=== PATIENT | female | born 2005 | race Two or more races ===

== ENCOUNTER 2025-02-04 18:34 | Observation (INO) | payer MEDICAID ==
[2025-02-04] MEDS ORDERED: URSO300C2 PO ×2 (18:57→20:21)
[2025-02-04 19:20] LABS: Urine Protein, UAD TRACE (Negative)
--- NOTE | 2025-02-04 19:30 | DVH ---
OB ULTRASOUND, LIMITED CLINICAL INDICATION: cholestasis TECHNIQUE: Multiple grayscale ultrasound and M-mode images were obtained of the pelvis for evaluation of intrauterine . COMPARISON: None FINDINGS: A single living fetus is seen in vertex presentation. Biophysical profile: 02/14 breathin movements: 2 tone: 2 Amniotic fluid volume: 2 Placenta: Posterior. Amniotic fluid: Visibly normal. ALVAREZ 12.5 cm heart rate: 135 beats/min. A complete anatomic survey was not performed on this exam. Incidental note is made of mild bilateral hydronephrosis. IMPRESSION: Biophysical profile: 02/14 Bilateral hydronephrosis is noted.
[2025-02-04 19:41] LABS: Hematocrit 37.1 % (36.0-46.0); Hemoglobin 12.4 g/dL (12.2-16.2); Mean Corpuscular Hemoglobin 28.0 pg (28.0-32.0); Mean Corpuscular Volume 83.8 fL (80.0-100.0); Nucleated Red Blood Cells % 0.1 %
[2025-02-04 19:59] LABS: INR 0.93 (0.9-1.15); Partial Thromboplastin Time 27.9 SEC (24.5-34.5); Prothrombin Time 9.9 sec (9.3-11.8)
[2025-02-04 20:04] LABS: Albumin 3.6 g/dL (3.2-4.8); Anion Gap 7 (5-15); BUN/Creatinine Ratio 22.2 (10.0-20.0); Bilirubin, Total 0.7 mg/dL (0.2-1.0); Blood Urea Nitrogen 10 mg/dL (9-23); Carbon Dioxide 24 mmol/L (20-31); Chloride 106 mmol/L (98-107); Potassium 3.6 mmol/L (3.5-5.1); Sodium 137 mmol/L (136-145); Total Protein 6.5 g/dL (5.7-8.2); Uric Acid 4.0 mg/dL (3.1-7.8)
[2025-02-04 20:08] LABS: Alanine Aminotransferase 116 U/L (7-40); Alkaline Phosphatase 238 U/L (46-116); Calcium 8.3 mg/dL (8.7-10.4); Glucose 74 mg/dL (74-106)
--- NOTE | 2025-02-04 20:26 | DVHDS2 ---
Physician Discharge Progress N Final Diagnosis: cholestasis labs Operations or Procedures: Operations or Procedures 19yo IUP@34.3wks presents to OB triage after being told by Dr. Allen to come in for itchy palms and soles of feet. VSS NST reactive Dr. Allen consulted, agrees with POC. Rx sent for ursodiol 300mg PO BID. Lab slip given to [facility] to check total and fractionated bile acids on 02/05/25 morning. [facility]/PTL precautions reviewed. Laboratory Tests Test 02/04/25 18:45 02/04/25 19:28 Range/Units Urine Color Yellow Yellow Urine Clarity Clear Clear Urine pH 6.0 5.0-9.0 Urine Specific Dobson 1.024 1.001-1.035 Urine Protein Trace H Negative Urine Ketones Negative Negative Urine Blood Negative Negative /uL Urine Nitrite Negative Negative Urine Bilirubin Negative Negative Urine Urobilinogen 2 H Negative mg/dL Urine Leukocyte Esterase 2+ Negative /uL Urine RBC 3 0 - 4 /hpf Urine Microscopic WBC 18 H 0-5 /HPF Urine Squamous Epithelial Cells Few <5 /hpf Urine Bacteria Few H None Seen /hpf Urine Mucus Few None Seen Urine Glucose Normal Normal mg/dL White Blood Count 7.0 4.4-10.8 10^3/uL Red Blood Count 4.43 4.0-5.20 10^6/uL Hemoglobin 12.4 12.2-16.2 g/dL Hematocrit 37.1 36.0-46.0 % Mean Corpuscular Volume 83.8 80.0-100.0 fL Mean Corpuscular Hemoglobin 28.0 28.0-32.0 pg Mean Corpuscular Hemoglobin Concent 33.5 32.0-36.0 g/dL Red Cell Distribution Width 22.3 H 11.8-14.3 % Platelet Count 240 140-450 10^3/uL Mean Platelet Volume 7.4 6.9-10.8 fL Neutrophils (%) (Auto) 68.0 37.0-80.0 % Lymphocytes (%) (Auto) 26.2 10.0-50.0 % Monocytes (%) (Auto) 4.6 0.0-12.0 % Eosinophils (%) (Auto) 0.6 0.0-7.0 % Basophils (%) (Auto) 0.6 0.0-2.0 % Neutrophils # (Auto) 4.7 1.6-8.6 10 ^3/uL Lymphocytes # (Auto) 1.8 0.4-5.4 10 ^3/uL Monocytes # (Auto) 0.3 0-1.3 10 ^3/uL Eosinophils # (Auto) 0 0-0.8 10 ^3/uL Basophils # (Auto) 0 0-0.2 10 ^3/uL Nucleated Red Blood Cells 0.1 % Prothrombin Time 9.9 9.3-11.8 sec Prothrombin Time INR 0.93 0.9-1.15 Activated Partial Thromboplast Time 27.9 24.5-34.5 SEC Sodium Level 137 136-145 mmol/L Potassium Level 3.6 3.5-5.1 mmol/L Chloride Level 106 98-107 mmol/L Carbon Dioxide Level 24 20-31 mmol/L Anion Gap 7 5-15 Blood Urea Nitrogen 10 9-23 mg/dL Creatinine 0.45 L 0.550-1.02 mg/dL Glomerular Filtration Rate Calc 140 >90 mL/min BUN/Creatinine Ratio 22.2 H 10.0-20.0 Serum Glucose 74 74-106 mg/dL Uric Acid 4.0 3.1-7.8 mg/dL Calcium Level 8.3 L 8.7-10.4 mg/dL Total Bilirubin 0.7 0.2-1.0 mg/dL Aspartate Amino Transferase (AST) 56 H 13-40 U/L Alanine Aminotransferase (ALT) 116 H 7-40 U/L Alkaline Phosphatase 238 H 46-116 U/L Total Protein 6.5 5.7-8.2 g/dL Albumin 3.6 3.2-4.8 g/dL Other Interventions Other Interventions [place] [address] Ph: [phone] DIAGNOSTIC IMAGING Diagnostic Imaging Report : [id number] Signed PATIENT: TWIN STEELE ACCT: [id number] UNIT: [id number] : 2005 LOC: LD ROOM / BED: TRIAGE1 / A AGE / SEX: 19 / F ADM STATUS: ADM IN SERVICE 1845 ORDERING PHYSICIAN: DARCI NUNN CNM PROCEDURE(s): BPP - BIOPHYSICAL PROFILE REASON: cholestasis ORDER NUMBER(s): [id number], ACCESSION NUMBER(s): [id number] OB ULTRASOUND, LIMITED CLINICAL INDICATION: cholestasis TECHNIQUE: Multiple grayscale ultrasound and M-mode images were obtained of the pelvis for evaluation of intrauterine . COMPARISON: None FINDINGS: A single living fetus is seen in vertex presentation. Biophysical profile: 02/14 breathin movements: 2 tone: 2 Amniotic fluid volume: 2 Placenta: Posterior. Amniotic fluid: Visibly normal. ALVAREZ 12.5 cm heart rate: 135 beats/min. A complete anatomic survey was not performed on this exam. Incidental note is made of mild bilateral hydronephrosis. IMPRESSION: Biophysical profile: 02/14 Bilateral hydronephrosis is noted. ATED BY: CLARISSA CAMACHO MD DICTATED DATE/TIME: 02/04/251927 SIGNED BY: CLARISSA CAMACHO MD SIGNED DATE/TIME: 02/04/251927 CC: Condition on Discharge: Stable Disposition: Home Discharge Instructions: Diet: Regular Activity: No Restrictions, As Tolerated Medications: see med list Follow Up Care: Specialist: f/u twice weekly Discharge Statement: "Patient was advised to return to the ER or call 911 if any headaches, dizziness, shortness of breath, chest pain, abdominal pain, bleeding, fevers, or worsening of medical condition. Patient was counseled about treatment plan, medications, possible side effects, patientverbalized understanding. All questions were answered to the best of my ability. This discharge took greater then 30 minutes in planning, reviewing documentation, counseling the patient, and discussing with other team members." Visit Coding OBGYN Date of Service: Feb 04, 2025 Billing Provider: DARCI NUNN CNM TAB CARD PRESS OPERATOR Common Visit Codes: 97825-[id number] OBS CARE (HIGH) TAB CARD PRESS OPERATOR Procedure Codes: 51430-88- NON-STRESS TEST DARCI NUNN CNM Feb 04, 2025 20:26
== END 2025-02-04 20:30 | disposition home or self-care (01) ==
LOC: LDRP 18:34
PROVIDERS: ADMIT Obstetrics & Gynecology; ATTEND Obstetrics & Gynecology
DX: O26.643 Intrahepatic cholestasis of pregnancy, third trimester (principal); Z3A.34 34 weeks gestation of pregnancy; Z98.890 Other specified postprocedural states; Z79.899 Other long term (current) drug therapy; K83.1 Obstruction of bile duct
CPT/HCPCS: 36415; 59025; 76819; 80053; 81001; 81002; 84550; 85025; 85610; 85730; 94760; G0378

== ENCOUNTER 2025-02-07 14:15 | Observation (INO) | payer MEDICAID ==
[~2025-02-07 14:15] MED LIST: URSO300C2 PO
[2025-02-07] MEDS ORDERED: PREN-96 PO (14:47)
--- NOTE | 2025-02-07 15:33 | DVH ---
OB ULTRASOUND, LIMITED CLINICAL INDICATION: Cholestasis TECHNIQUE: Multiple grayscale ultrasound and M-mode images were obtained of the pelvis for evaluation of intrauterine . COMPARISON: US BIOPHYSICAL PROFILE on DOS: 02/04/25 FINDINGS: A single living fetus is seen in cephalic presentation. Biophysical profile: 02/14 breathin movements: 2 tone: 2 Amniotic fluid: 2 Placenta: Posterior. Amniotic fluid: Visibly normal. ALVAREZ 12.2 cm heart rate: 132 beats/min. A complete anatomic survey was not performed on this exam. IMPRESSION: Biophysical profile: 02/14
--- NOTE | 2025-02-17 16:12 | DVHDS2 ---
Physician Discharge Progress N Final Diagnosis: cholestasis Operations or Procedures: Operations or Procedures nst reactive reviwed,sono Condition on Discharge: Good Disposition: Home Discharge Instructions: Diet: Regular Activity: No Restrictions, As Tolerated Medications: na Follow Up Care: Specialist: 3d Discharge Statement: "Patient was advised to return to the ER or call 911 if any headaches, dizziness, shortness of breath, chest pain, abdominal pain, bleeding, fevers, or worsening of medical condition. Patient was counseled about treatment plan, medications, possible side effects, patientverbalized understanding. All questions were answered to the best of my ability. This discharge took greater then 30 minutes in planning, reviewing document ation, counseling the patient, and discussing with other team members." Discharge Care Plan Instructions Importance of mobility Visit Coding OBGYN Date of Service: Feb 07, 2025 Billing Provider: SHANNON PHILIP DO MODEL DRESSER Common Visit Codes: 05719-[id number] INP/OBS CARE (HIGH) MODEL DRESSER Procedure Codes: 51241-81- NON-STRESS TEST SHANNON PHILIP DO Feb 17, 2025 16:12
== END 2025-02-07 15:38 | disposition home or self-care (01) ==
LOC: UNDOADMOB 14:15 → LDRP 14:15
PROVIDERS: ADMIT Obstetrics & Gynecology; ATTEND Obstetrics & Gynecology
DX: O26.643 Intrahepatic cholestasis of pregnancy, third trimester (principal); Z98.890 Other specified postprocedural states; Z79.899 Other long term (current) drug therapy; Z3A.34 34 weeks gestation of pregnancy
CPT/HCPCS: 59025; 76819; 81002; 94760; G0378

== ENCOUNTER 2025-02-11 07:47 | Observation (INO) | payer MEDICAID ==
[~2025-02-11] VITALS: Ht 162.6 cm; Wt 52.2 kg
[~2025-02-11 07:47] MED LIST changes: +PREN-96 PO
--- NOTE | 2025-02-11 19:18 | DVH ---
ULTRASOUND BIOPHYSICAL PROFILE CLINICAL HISTORY: Yuliana COMPARISON: US BIOPHYSICAL PROFILE on DOS: 02/07/25 TECHNIQUE: Real-time grayscale, color flow and M-mode imaging of the gravid uterus is performed. FINDINGS: Single living intrauterine gestation. Cephalic presentation. heart rate 138 beats per minute. Placenta is posterior. No definite evidence of abruption or previa at this time. Amniotic fluid index: 13.8 cm Biophysical profile: 8 out of 8. (2 breathing, 2 activity, 2 tone, 2 ALVAREZ) IMPRESSION: Biophysical profile score 8/8.
--- NOTE | 2025-02-11 20:38 | DVHDS2 ---
Physician Discharge Progress N Final Diagnosis: testing for cholestasis Operations or Procedures: Operations or Procedures 19yo IUP@35.3wks, pt reports not drinking much water today UA - dehydrated VSS NST reactive PO hydrated with 1 pitcher of water FKC/PTL precautions reviewed Dr. Allen consulted, agrees with POC. Other Interventions Other Interventions [place] [address] Ph: [phone] DIAGNOSTIC IMAGING Diagnostic Imaging Report : [id number] Signed PATIENT: TWIN STEELE ACCT: [id number] UNIT: [id number] : 2005 LOC: [facility] ROOM / BED: TRIAGE3 / A AGE / SEX: 19 / F ADM STATUS: ADM IN SERVICE 58 ORDERING PHYSICIAN: DARCI NUNN CNM PROCEDURE(s): BPP - BIOPHYSICAL PROFILE REASON: Yuliana ORDER NUMBER(s): [id number], ACCESSION NUMBER(s): [id number] ULTRASOUND BIOPHYSICAL PROFILE CLINICAL HISTORY: Yuliana COMPARISON: US BIOPHYSICAL PROFILE on DOS: 02/07/25 TECHNIQUE: Real-time grayscale, color flow and M-mode imaging of the gravid uterus is performed. FINDINGS: Single living intrauterine gestation. Cephalic presentation. heart rate 138 beats per minute. Placenta is posterior. No definite evidence of abruption or previa at this time. Amniotic fluid index: 13.8 cm Biophysical profile: 8 out of 8. (2 breathing, 2 activity, 2 tone, 2 ALVAREZ) IMPRESSION: Biophysical profile score 8/8. ATED BY: JAM CONROY MD DICTATED DATE/TIME: 02/11/251915 SIGNED BY: JAM CONROY MD SIGNED DATE/TIME: 02/11/251915 CC: Condition on Discharge: Stable Disposition: Home Discharge Instructions: Diet: Regular Activity: No Restrictions, As Tolerated Medications: see med list Follow Up Care: Specialist: f/u in 3 days Discharge Statement: "Patient was advised to return to the ER or call 911 if any headaches, dizziness, shortness of breath, chest pain, abdominal pain, bleeding, fevers, or worsening of medical condition. Patient was counseled about treatment plan, medications, possible side effects, patientverbalized understanding. All questions were answered to the best of my ability. This discharge took greater then 30 minutes in planning, reviewing documentation, counseling the patient, and discussing with other team members." Visit Coding OBGYN Date of Service: Feb 11, 2025 Billing Provider: DARCI NUNN CNM EVENT DECORATOR Common Visit Codes: 19288-[id number] OBS CARE (HIGH) EVENT DECORATOR Procedure Codes: 40155-23- NON-STRESS TEST DARCI NUNN CNM Feb 11, 2025 20:38
== END 2025-02-11 19:24 | disposition home or self-care (01) ==
LOC: LDRP 17:47
PROVIDERS: ADMIT Obstetrics & Gynecology; ATTEND Obstetrics & Gynecology
DX: O26.643 Intrahepatic cholestasis of pregnancy, third trimester (principal); K83.1 Obstruction of bile duct; Z3A.35 35 weeks gestation of pregnancy; Z98.890 Other specified postprocedural states; Z79.899 Other long term (current) drug therapy
CPT/HCPCS: 59025; 76819; 81002; 94760; G0378

== ENCOUNTER 2025-02-14 07:23 | Observation (INO) | payer MEDICAID ==
--- NOTE | 2025-02-14 18:17 | DVH ---
BIOPHYSICAL PROFILE HISTORY: skyler TECHNIQUE: Multiple transabdominal real-time grayscale sonographic images through the gravid uterus of the fetus with duplex Doppler color flow and M-mode spectral analysis FINDINGS: BIOPHYSICAL PROFILE: breathing score: 2 movement score: 2 tone score: 2 Quantitative ALVAREZ score: 2 (ALVAREZ: 12.7 Cm.) Total score: 8/8 The cervix not visualized Single live fetus in cephalic presentation. heart rate 148 beats per minute. Posterior Grade 2-3 placenta without previa or abruption Single live fetus at 35 weeks 6 days Biophysical profile score 8/8 corresponding to an VICENTE of 03/15/2025 IMPRESSION: 1. Biophysical profile score: 8/8
--- NOTE | 2025-02-17 12:21 | DVHDS2 ---
Physician Discharge Progress N Final Diagnosis: cholestais of preg Operations or Procedures: Operations or Procedures nst reactive reviwed,sono Condition on Discharge: Good Disposition: Home Discharge Instructions: Diet: Regular Activity: No Restrictions, As Tolerated Medications: na Follow Up Care: Specialist: 3d Discharge Statement: "Patient was advised to return to the ER or call 911 if any headaches, dizziness, shortness of breath, chest pain, abdominal pain, bleeding, fevers, or worsening of medical condition. Patient was counseled about treatment plan, medications, possible side effects, patientverbalized understanding. All questions were answered to the best of my ability. This discharge took greater then 30 minutes in planning, reviewing d ocumentation, counseling the patient, and discussing with other team members." Visit Coding OBGYN Date of Service: Feb 14, 2025 Billing Provider: SHANNON PHILIP DO OFFICE MACHINE EMBOSSOGRAPH OPERATOR Common Visit Codes: [id number] INP/OBS CARE (HIGH) OFFICE MACHINE EMBOSSOGRAPH OPERATOR Procedure Codes: 52141-55- NON-STRESS TEST SHANNON PHILIP DO Feb 17, 2025 12:21
== END 2025-02-14 18:56 | disposition home or self-care (01) ==
LOC: LDRP 17:30
PROVIDERS: ADMIT Obstetrics & Gynecology; ATTEND Obstetrics & Gynecology
DX: O26.643 Intrahepatic cholestasis of pregnancy, third trimester (principal); K83.1 Obstruction of bile duct; Z3A.35 35 weeks gestation of pregnancy; Z79.899 Other long term (current) drug therapy; Z98.890 Other specified postprocedural states
CPT/HCPCS: 59025; 76819; 94760; G0378

== ENCOUNTER 2025-02-18 15:21 | Observation (INO) | payer MEDICAID ==
[~2025-02-18] VITALS: Ht 157.5 cm; Wt 63.5 kg
--- NOTE | 2025-02-18 15:55 | DVHDS2 ---
Physician Discharge Progress N Final Diagnosis: cholestasis of preg 36wks Operations or Procedures: Operations or Procedures nst reactive reviwdenis,sadeo Consultations: Consultations pt is taking actigal and doing much better Condition on Discharge: Good Disposition: Home Discharge Instructions: Diet: Regular Activity: No Restrictions, As Tolerated Medications: na,cont with actigal Follow Up Care: Specialist: induction on mon,fu this wk on Discharge Statement: "Patient was advised to return to the ER or call 911 if any headaches, dizziness, shortness of breath, chest pain, abdominal pain, bleeding, fevers, or worsening of medical condition. Patient was counseled about treatment plan, medications, possible side effects, patientverbalized understanding. All questions were answered to the best of my ability. This discharge took greater then 30 minutes in planning, reviewing documentation, counseling the patient, and discussing with other team members." Visit Coding OBGYN Date of Service: Feb 18, 2025 Billing Provider: SHANNON PHILIP DO BEAM DEPARTMENT SUPERVISOR Common Visit Codes: 24913-[id number] INP/OBS CARE (HIGH) BEAM DEPARTMENT SUPERVISOR Procedure Codes: 54134-62- NON-STRESS TEST SHANNON PHILIP DO Feb 18, 2025 15:55
--- NOTE | 2025-02-18 16:33 | DVH ---
BIOPHYSICAL PROFILE HISTORY: cholestasis Comparison Study: US BIOPHYSICAL PROFILE on DOS: 02/14/25, US BIOPHYSICAL PROFILE on DOS: 02/11/25, US BI OPHYSICAL PROFILE on DOS: 02/07/25, US BIOPHYSICAL PROFILE on DOS: 02/04/25 TECHNIQUE: Multiple real-time grayscale sonographic images through the gravid uterus of the fetus wi th duplex Doppler color flow and M-mode spectral analysis FINDINGS: BIOPHYSICAL PROFILE: breathing score: 2 movement score: 2 tone score: 2 Quantitative ALVAREZ score: 2 (ALVAREZ: 11.5 Cm.) Total score: 8 The cervix is not visualized Single live fetus in cephalic presentation. heart rate 144 beats per minute. Posterior placenta without previa or abruption IMPRESSION: Biophysical profile score: 8
== END 2025-02-18 16:52 | disposition home or self-care (01) ==
LOC: UNDOADMOB 15:21 → LDRP 15:21 → UNDODISOB 16:52
PROVIDERS: ADMIT Obstetrics & Gynecology; ATTEND Obstetrics & Gynecology
DX: O26.643 Intrahepatic cholestasis of pregnancy, third trimester (principal); K83.1 Obstruction of bile duct; Z3A.36 36 weeks gestation of pregnancy; Z98.890 Other specified postprocedural states; Z79.899 Other long term (current) drug therapy
CPT/HCPCS: 59025; 76819; 81002; 94760; G0378; 76818

== ENCOUNTER 2025-02-21 00:39 | Observation (INO) | payer MEDICAID ==
[~2025-02-21] VITALS: Ht 165.1 cm; Wt 58.1 kg
[2025-02-21] MEDS: FAMOTIDINE 20 MG TAB PO ONE (02:10)
--- NOTE | 2025-02-21 02:26 | DVHDS2 ---
Physician Discharge Progress N Final Diagnosis: IUP at 36w6d, not in labor Secondary Diagnosis: Cholestasis of Operations or Procedures: Operations or Procedures VANESA Dee is a 20 yo with IUP at 36w6d presenting for rib pain and mild nausea Patient states that she began feeling rib pain all across the top of her abdomen a couple hours ago. She describes the pain as a continuous aching and pressure. It was accompanied by nausea and some heartburn. She threw up one time today after eating cereal and whole milk. She took zofran and that helped a little bit. Denies feeling contractions, denies leaking fluid, and endorses positive f etal movement. Denies headache, blurry vision, or epigastric pain OB Hx: cholestasis of Review of Systems: Neuro: No complaints Heart: No complaints Lungs: Some shortness of breath when she was at home, but none at this time GI: Mild nausea and heartburn : Denies dysuria, abnormal vaginal discharge, itching, pain, or change in odor. Skin: Itching well controlled with medication Extremities: No complaints OBJECTIVE VSS FHR: Baseline: 135 Variability: Moderate Accelerations: Present Decelerations: Absent Category: 1 UCs: none noted Neuro: A&O x4. No apparent distress. Affect appropriate Heart: Regular rate and rhythm Lungs: Clear bilaterally GI: Gravid. No tenderness Skin: Dry and intact. No rashes or lesions Extremities: Cap refill WNL. ASSESSMENT 20 yo with IUP at 36w6d Category 1 Tracing PLAN -PO hydrated patient and gave her food to eat. Patient states she feels "a lot better" after eating -Patient given PO pepcid and states that all her symptoms have resolved. -Reviewed common discomforts of with patient and nonpharmacologic and pharmacologic ways to alleviate -Patient scheduled for induction on Monday, 02/22 -Discussed labor precautions and kick counts. Answered all patient questions and concerns. Patient verbalizes understanding. Condition on Discharge: Good Disposition: Home Discharge Instructions: Diet: Regular (Discussed ways to reduce heartburn) Activity: No Restrictions, As Tolerated Medications: No change from previous Follow Up Care: Specialist: Keep 02/22 appointment for induction Discharge Statement: "Patient was advised to return to the ER or call 911 if any headaches, dizziness, shortness of breath, chest pain, abdominal pain, bleeding, fevers, or worsening of medical condition. Patient was counseled about treatment plan, medications, possible side effects, patientverbalized understanding. All questions were answered to the best of my ability. This discharge took greater then 30 minutes in planning, reviewing documentation, counseling the patient, and discussing with other team members." Visit Coding OBGYN Date of Service: Feb 21, 2025 Billing Provider: BRYANT SIMPSON CNM STATISTICIAN Common Visit Codes: 38937-HKT/OBS SAME DATE (HIGH) STATISTICIAN Procedure Codes: 43224-21- NON-STRESS TEST BRYANT SIMPSON CNM Feb 21, 2025 02:26
== END 2025-02-21 02:33 | disposition home or self-care (01) ==
LOC: LDRP 00:39
PROVIDERS: ADMIT Obstetrics & Gynecology; ATTEND Obstetrics & Gynecology
DX: O26.643 Intrahepatic cholestasis of pregnancy, third trimester (principal); K83.1 Obstruction of bile duct; O26.893 Other specified pregnancy related conditions, third trimester; R07.81 Pleurodynia; R11.0 Nausea; Z3A.36 36 weeks gestation of pregnancy; Z98.890 Other specified postprocedural states; Z79.899 Other long term (current) drug therapy
CPT/HCPCS: 59025; 81002; 94760; G0378

== ENCOUNTER 2025-02-22 07:23 | Inpatient (IN) | payer MEDICAID ==
[~2025-02-22] VITALS: Ht 162.6 cm; Wt 68.0 kg
[2025-02-22] MEDS ORDERED: PHISODERM TOP SOLN 240ML BTL TOP PRN (10:15)
[2025-02-22] MEDS ORDERED: WITCH HAZEL-GLYCERIN PAD TOP PRN (10:15)
[2025-02-22] MEDS ORDERED: DERMOPLAST 60ML BOTTLE TOP PRN (10:15)
[2025-02-22] MEDS ORDERED: ONDANSETRON HCL 4 MG/2 ML VIAL IV PRN (10:15)
[2025-02-22 10:59] LABS: Hematocrit 39.1 % (36.0-46.0); Hemoglobin 13.1 g/dL (12.2-16.2); Mean Corpuscular Hemoglobin 28.5 pg (28.0-32.0); Mean Corpuscular Volume 85.0 fL (80.0-100.0); Nucleated Red Blood Cells % 0.1 %
[2025-02-22 11:03] LABS: Urine Protein, UAD Negative (Negative)
[2025-02-22 11:17] LABS: INR 0.92 (0.9-1.15); Partial Thromboplastin Time 27.3 SEC (24.5-34.5); Prothrombin Time 9.8 sec (9.3-11.8)
[2025-02-22 11:22] LABS: Albumin 3.7 g/dL (3.2-4.8); Anion Gap 10 (5-15); BUN/Creatinine Ratio 13.1 (10.0-20.0); Carbon Dioxide 24 mmol/L (20-31); Chloride 104 mmol/L (98-107); Glucose 91 mg/dL (74-106); Sodium 138 mmol/L (136-145); Total Protein 6.5 g/dL (5.7-8.2)
[2025-02-22 11:23] LABS: Amphetamine Screen, Urine Neg (NEGATIVE); Barbiturate Scree,Urine Neg (NEGATIVE); Benzodiazephine Screen, Urine Neg (NEGATIVE); Cannabinoid Screen, Urine Neg (NEGATIVE); Cocaine Screen, Urine Neg (NEGATIVE); Opiate Scree,Urine Neg (NEGATIVE); Phencyclidine Screen, Urine Neg (NEGATIVE)
[2025-02-22 11:23] LABS: Alanine Aminotransferase 89 U/L (7-40); Alkaline Phosphatase 249 U/L (46-116); Bilirubin, Total 0.4 mg/dL (0.2-1.0); Blood Urea Nitrogen 8 mg/dL (9-23); Calcium 8.5 mg/dL (8.7-10.4); Potassium 3.2 mmol/L (3.5-5.1)
[2025-02-22] MEDS: DINOPROSTONE 10MG VAG SUPP PV ONE (12:45)
--- NOTE | 2025-02-22 13:00 | DVHHP2 ---
OB CC & HPI Date Date of Admission: Feb 22, 2025 Patient Identification: : 1 Para: 0 EDC: Mar 15, 2025 EGA: 37 Chief Complaints: Reason for admission: induction of labor Indication for induction: medical complication History of Present Complaints Scheduled IOL by primary OB , Dr Allen for severe Cholestasis of Being treated w/ Actigal Pruritis improved with no other complications Past Medical History Cardiac: No pertinent Hx Pulmonary: No pertinent Hx Central Nervous System: No pertinent Hx GI: No pertinent Hx Hemotology/Oncology: No pertinent Hx Hepatobiliary: No pertinent Hx Psychiatric: No pertinent Hx Musculoskeletal: No pertinent Hx Rheumotologic: No pertinent Hx Infectious Disease: No peritnent Hx ENT: No pertinent Hx Renal/: No pertinent Hx Endocrine: No pertinent Hx Dermatology: No pertinent Hx Past Surgical History: No pertinent Hx OB History OB History Care: Good Care Ultrasounds: No ultrasounds Obstetrical Complications: Other (Cholestasis of preg) Medical Complications: None Allergies: Coded Allergies: NO KNOWN ALLERGIES (Unverified , 02/11/25) Home Meds Active Scripts Ursodiol (Ursodiol) 300 Mg Cap, 300 MG PO BID for 30 Days, #60 CAP 1 Refill Prov:DARCI NUNN CNM 02/04/25 Reported Medications Vit W/ Ferrous Fumara ( One Daily) Daily Tab, 1 TAB PO DAILY, #90 TAB 3 Refills 02/07/25 Current Medications Current Medications Medications (Trade) Dose Ordered Sig/Gardenia Route PRN Reason Start Time Stop Time Status Last Admin Lactated Ringer's 1,000 ml @ 125 mls/hr Q8H IV 02/22/25 10:15 Nalbuphine HCl (Nubain) 10 mg Q4HP PRN IV MODERATE PAIN (4-6 PAIN SCALE) 02/22/25 10:15 Penicillin G Potassium [id number] units/Dextrose 50 ml @ 100 mls/hr Q4H IV 02/22/25 14:15 Witch Ani (Tucks) 1 pad PRN PRN TOP PERINEAL AREA DISCOMFORT 02/22/25 10:15 Sodium Lauryl Sulfate (Phisoderm) 240 ml PRN PRN TOP PERINEAL AREA DISCOMFORT 02/22/25 10:15 Benzocaine (Dermoplast) 1 applic PRN PRN TOP PERINEAL AREA DISCOMFORT 02/22/25 10:15 Lidocaine HCl (Xylocaine) 20 ml ONCE PRN IJ PERINEAL AREA DISCOMFORT 02/22/25 10:15 Ondansetron HCl (Zofran) 4 mg Q4HPRN PRN IV NAUSEA / VOMITING 02/22/25 10:15 Family & Social History Family/Social History Rubella: immune RPR/VDRL: Negative GBS Status: Unknown HBsAG: Negative Review of Systems Constitutional: No symptom reported Ears, Nose, & Throat: No symptom reported Eyes: No symptom reported Pulmonary/Respiratory: No symptom reported Cardiovascular: No symptom reported Gastrointestinal: No symptom reported Genitourinary: No symptom reported Musculoskeletal: No symptom reported Skin: No symptom reported Psychiatric: No symptom reported Endocrine: No symptom reported Hemotologic/Lymphatic: No symptom reported OB Admission Exam Physical Exam HEENT: TMs Normal, Fontanelles Normal, Nasal Mucosa Normal, Eyes non-injected, Oropharynx Normal, PERRLA, Moist Membranes, EOMI Heart: Rhythm Normal Lungs: Clear Abdomen: Non tender Extremities: Normal Reflexes: Normal Pelvic Exam: Pelvis adequate for vaginal delivery. clinical efw 6.5 pounds Cervical Dilatation: 1cm Effacement: 50% Station: -3 Membranes: Intact Heart Rate: 140's Accelerations: Accelerations Present Decelerations: No Decelerations Short Term Variability: Present Flight Dynamicist Variability: Average (6-25) Contractions on Admission: 6-10 Minutes Apart Intensity: Mild OB Plan Plan Admitting Diagnosis: Early Term , medically indicated induction of labor for Intrahepatic cholestasis of GBS unknown (pending results) Categ 1 tracing Plan: Induction Induction Methd: Cervidal protocol Other Plan: Indications for IOL discussed R/B/A reviewed Informed consent obtained Cervidil placed in PV at 1250pm tolerated well GBS?, start Dov if SROM or active labor Visit Coding OBGYN Date of Service: Feb 22, 2025 Billing Provider: CHELLE MARCUM DO TRANSLATOR AND INTERPRETER Common Visit Codes: 99429-[id number] INP/OBS CARE (HIGH) CHELLE MARCUM DO Feb 22, 2025 13:00
[2025-02-22] MEDS: LACTATED RINGER'S 1,000 ML IV SCH (15:38)
--- NOTE | 2025-02-23 04:37 | DVHPN2 ---
OB Labor Progress Note Date and Time Seen Date Seen: Feb 23, 2025 Time Seen: 04:35 Subjective Patient reports: No new complaints Objective Vital Signs Afeb VS stable Monitoring Method Monitoring Method: External Heart Rate Heart Rate Baseline: 130 Heart Rate Variability: Moderate Presence of FHR Accelerations: Yes Presence of FHR Decelerations: No Contractions Contractions Intensity: Moderate Contractions Resting Tone: Relaxed Membranes Membranes: Intact Vaginal Exam Vag Exam Deferred: No Vaginal Exam Dilation: 1 Vaginal Exam Effacement: 60 Vaginal Exam Station: -1 Vaginal Exam Presentation: VTX Vaginal Exam Show: None Medications Medications - Pitocin: No Lab Results Lab Results Current Medications Medications (Trade) Dose Ordered Sig/[place] Start Time Stop Time Status Last Admin Dose Admin Lactated Ringer's 1,000 ml @ 125 mls/hr Q8H 02/22/25 10:15 02/22/25 23:05 125 MLS/HR Nalbuphine HCl (Nubain) 10 mg Q4HP PRN 02/22/25 10:15 Penicillin G Potassium 50 ml @ 100 mls/hr ONCE ONCE 02/22/25 10:15 02/22/25 11:07 DC Penicillin G Potassium 9822392 units/Dextrose 50 ml @ 100 mls/hr Q4H 02/22/25 14:15 Witch Ani (Tucks) 1 pad PRN PRN 02/22/25 10:15 Sodium Lauryl Sulfate (Phisoderm) 240 ml PRN PRN 02/22/25 10:15 Benzocaine (Dermoplast) 1 applic PRN PRN 02/22/25 10:15 Lidocaine HCl (Xylocaine) 20 ml ONCE PRN 02/22/25 10:15 Ondansetron HCl (Zofran) 4 mg Q4HPRN PRN 02/22/25 10:15 Dinoprostone (Cervidil Suppository) 1 supp ONCE ONCE 02/22/25 11:45 02/22/25 11:46 DC 02/22/25 12:45 1 SUPP Misoprostol (Cytotec) 50 mcg Q4HPRN PRN 02/23/25 04:00 02/23/25 04:01 50 MCG Laboratory Tests Test 02/22/25 10:33 02/22/25 10:30 02/22/25 10:12 Range/Units Urine Color Yellow Yellow Urine Clarity Turbid H Clear Urine pH 6.5 5.0-9.0 Urine Specific [place] 1.017 1.001-1.035 Urine Protein Negative Negative Urine Ketones Negative Negative Urine Blood Trace H Negative /uL Urine Nitrite Negative Negative Urine Bilirubin Negative Negative Urine Urobilinogen Normal Negative mg/dL Urine Leukocyte Esterase 3+ Negative /uL Urine RBC 2 0 - 4 /hpf Urine Microscopic WBC 35 H 0-5 /HPF Urine Squamous Epithelial Cells Mod <5 /hpf Urine Bacteria Few H None Seen /hpf Urine Mucus Few None Seen Urine Glucose Normal Normal mg/dL Urine Opiates Screen Neg NEGATIVE Urine Fentanyl Screen Neg NEGATIVE Urine Barbiturates Screen Neg NEGATIVE Urine Phencyclidine Screen Neg NEGATIVE Urine Amphetamines Screen Neg NEGATIVE Urine Benzodiazepines Screen Neg NEGATIVE Urine Cocaine Screen Neg NEGATIVE Urine Cannabinoids Screen Neg NEGATIVE White Blood Count 6.2 4.4-10.8 10^3/uL Red Blood Count 4.60 4.0-5.20 10^6/uL Hemoglobin 13.1 12.2-16.2 g/dL Hematocrit 39.1 36.0-46.0 % Mean Corpuscular Volume 85.0 80.0-100.0 fL Mean Corpuscular Hemoglobin 28.5 28.0-32.0 pg Mean Corpuscular Hemoglobin Concent 33.6 32.0-36.0 g/dL Red Cell Distribution Width 18.2 H 11.8-14.3 % Platelet Count 203 140-450 10^3/uL Mean Platelet Volume 7.9 6.9-10.8 fL Neutrophils (%) (Auto) 68.4 37.0-80.0 % Lymphocytes (%) (Auto) 26.0 10.0-50.0 % Monocytes (%) (Auto) 4.4 0.0-12.0 % Eosinophils (%) (Auto) 0.9 0.0-7.0 % Basophils (%) (Auto) 0.3 0.0-2.0 % Neutrophils # (Auto) 4.3 1.6-8.6 10 ^3/uL Lymphocytes # (Auto) 1.6 0.4-5.4 10 ^3/uL Monocytes # (Auto) 0.3 0-1.3 10 ^3/uL Eosinophils # (Auto) 0.1 0-0.8 10 ^3/uL Basophils # (Auto) 0 0-0.2 10 ^3/uL Nucleated Red Blood Cells 0.1 % Sodium Level 138 136-145 mmol/L Potassium Level 3.2 L 3.5-5.1 mmol/L Chloride Level 104 98-107 mmol/L Carbon Dioxide Level 24 20-31 mmol/L Anion Gap 10 5-15 Blood Urea Nitrogen 8 L 9-23 mg/dL Creatinine 0.61 0.550-1.02 mg/dL Glomerular Filtration Rate Calc 130 >90 mL/min BUN/Creatinine Ratio 13.1 10.0-20.0 Serum Glucose 91 74-106 mg/dL Calcium Level 8.5 L 8.7-10.4 mg/dL Total Bilirubin 0.4 0.2-1.0 mg/dL Aspartate Amino Transferase (AST) 46 H 13-40 U/L Alanine Aminotransferase (ALT) 89 H 7-40 U/L Alkaline Phosphatase 249 H 46-116 U/L Total Protein 6.5 5.7-8.2 g/dL Albumin 3.7 3.2-4.8 g/dL Treponema pallidum Antibody Non-reactive Negative Hepatitis C Antibody Negative Negative Prothrombin Time 9.8 9.3-11.8 sec Prothrombin Time INR 0.92 0.9-1.15 Activated Partial Thromboplast Time 27.3 24.5-34.5 SEC Assessment Assessment IUP 37.1 wk, Intrahepatic Cholestasis of Induction of labor s/p cervidil (removed) Categ1 FHR tracing Plan Plan Start PO cytotec for further cervical ripening Plan discussed with: Patient, Other (RN) Visit Coding OBGYN Date of Service: Feb 23, 2025 Billing Provider: CHELLE MARCUM DO M[employer]ION MANAGER Common Visit Codes: [id number] INP/OBS CARE(HIGH) CHELLE MARCUM DO Feb 23, 2025 04:37
[2025-02-23] MEDS ORDERED: LACTATED RINGER'S 1,000 ML IV ONE (12:30)
--- NOTE | 2025-02-23 14:30 | DVHPN2 ---
OB Labor Progress Note Date and Time Seen Date Seen: Feb 23, 2025 Time Seen: 14:49 Subjective Patient reports: Feels better Subjective Comment s/p Epidural feels better, less pain COOK cervical dilation balloon placed Objective Vital Signs Afeb VSS Monitoring Method Monitoring Method: External Heart Rate Heart Rate Baseline: 140 Heart Rate Variability: Moderate Presence of FHR Accelerations: Yes Presence of FHR Decelerations: No Contractions Contractions Frequency: Other (Regular) Contractions Intensity: Moderate Contractions Resting Tone: Relaxed Membranes Membranes: Intact Vaginal Exam Vag Exam Deferred: No (COOKS sanchez balloon placed. tolerated well) Vaginal Exam Dilation: 2 Vaginal Exam Effacement: 80 Vaginal Exam Station: -2 Vaginal Exam Presentation: VTX Vaginal Exam Show: Small Medications Medications - Pitocin: No Medication - Epidural: Yes Lab Results Lab Results Current Medications Medications (Trade) Dose Ordered Sig/Gardenia Start Time Stop Time Status Last Admin Dose Admin Lactated Ringer's 1,000 ml @ 125 mls/hr Q8H 02/22/25 10:15 02/22/25 23:05 125 MLS/HR Nalbuphine HCl (Nubain) 10 mg Q4HP PRN 02/22/25 10:15 Penicillin G Potassium 50 ml @ 100 mls/hr ONCE ONCE 02/22/25 10:15 02/22/25 11:07 DC Penicillin G Potassium [id number] units/Dextrose 50 ml @ 100 mls/hr Q4H 02/22/25 14:15 Witch Ani (Tucks) 1 pad PRN PRN 02/22/25 10:15 Sodium Lauryl Sulfate (Phisoderm) 240 ml PRN PRN 02/22/25 10:15 Benzocaine (Dermoplast) 1 applic PRN PRN 02/22/25 10:15 Lidocaine HCl (Xylocaine) 20 ml ONCE PRN 02/22/25 10:15 Ondansetron HCl (Zofran) 4 mg Q4HPRN PRN 02/22/25 10:15 Dinoprostone (Cervidil Suppository) 1 supp ONCE ONCE 02/22/25 11:45 02/22/25 11:46 DC 02/22/25 12:45 1 SUPP Misoprostol (Cytotec) 50 mcg Q4HPRN PRN 02/23/25 04:00 02/23/25 04:01 50 MCG Ephedrine Sulfate (ePHEDrine SULFATE) 10 mg PRN ONCE 02/23/25 12:30 02/23/25 12:32 DC Lactated Ringer's 1,000 ml @ 1,000 mls/hr Q1H ONCE 02/23/25 12:30 02/23/25 13:29 DC Ursodiol (Actigall) 300 mg BID 02/23/25 22:00 Laboratory Tests Test 02/22/25 10:33 02/22/25 10:30 02/22/25 10:12 Range/Units Urine Color Yellow Yellow Urine Clarity Turbid H Clear Urine pH 6.5 5.0-9.0 Urine Specific [place] 1.017 1.001-1.035 Urine Protein Negative Negative Urine Ketones Negative Negative Urine Blood Trace H Negative /uL Urine Nitrite Negative Negative Urine Bilirubin Negative Negative Urine Urobilinogen Normal Negative mg/dL Urine Leukocyte Esterase 3+ Negative /uL Urine RBC 2 0 - 4 /hpf Urine Microscopic WBC 35 H 0-5 /HPF Urine Squamous Epithelial Cells Mod <5 /hpf Urine Bacteria Few H None Seen /hpf Urine Mucus Few None Seen Urine Glucose Normal Normal mg/dL Urine Opiates Screen Neg NEGATIVE Urine Fentanyl Screen Neg NEGATIVE Urine Barbiturates Screen Neg NEGATIVE Urine Phencyclidine Screen Neg NEGATIVE Urine Amphetamines Screen Neg NEGATIVE Urine Benzodiazepines Screen Neg NEGATIVE Urine Cocaine Screen Neg NEGATIVE Urine Cannabinoids Screen Neg NEGATIVE White Blood Count 6.2 4.4-10.8 10^3/uL Red Blood Count 4.60 4.0-5.20 10^6/uL Hemoglobin 13.1 12.2-16.2 g/dL Hematocrit 39.1 36.0-46.0 % Mean Corpuscular Volume 85.0 80.0-100.0 fL Mean Corpuscular Hemoglobin 28.5 28.0-32.0 pg Mean Corpuscular Hemoglobin Concent 33.6 32.0-36.0 g/dL Red Cell Distribution Width 18.2 H 11.8-14.3 % Platelet Count 203 140-450 10^3/uL Mean Platelet Volume 7.9 6.9-10.8 fL Neutrophils (%) (Auto) 68.4 37.0-80.0 % Lymphocytes (%) (Auto) 26.0 10.0-50.0 % Monocytes (%) (Auto) 4.4 0.0-12.0 % Eosinophils (%) (Auto) 0.9 0.0-7.0 % Basophils (%) (Auto) 0.3 0.0-2.0 % Neutrophils # (Auto) 4.3 1.6-8.6 10 ^3/uL Lymphocytes # (Auto) 1.6 0.4-5.4 10 ^3/uL Monocytes # (Auto) 0.3 0-1.3 10 ^3/uL Eosinophils # (Auto) 0.1 0-0.8 10 ^3/uL Basophils # (Auto) 0 0-0.2 10 ^3/uL Nucleated Red Blood Cells 0.1 % Sodium Level 138 136-145 mmol/L Potassium Level 3.2 L 3.5-5.1 mmol/L Chloride Level 104 98-107 mmol/L Carbon Dioxide Level 24 20-31 mmol/L Anion Gap 10 5-15 Blood Urea Nitrogen 8 L 9-23 mg/dL Creatinine 0.61 0.550-1.02 mg/dL Glomerular Filtration Rate Calc 130 >90 mL/min BUN/Creatinine Ratio 13.1 10.0-20.0 Serum Glucose 91 74-106 mg/dL Calcium Level 8.5 L 8.7-10.4 mg/dL Total Bilirubin 0.4 0.2-1.0 mg/dL Aspartate Amino Transferase (AST) 46 H 13-40 U/L Alanine Aminotransferase (ALT) 89 H 7-40 U/L Alkaline Phosphatase 249 H 46-116 U/L Total Protein 6.5 5.7-8.2 g/dL Albumin 3.7 3.2-4.8 g/dL Treponema pallidum Antibody Non-reactive Negative Hepatitis C Antibody Negative Negative Prothrombin Time 9.8 9.3-11.8 sec Prothrombin Time INR 0.92 0.9-1.15 Activated Partial Thromboplast Time 27.3 24.5-34.5 SEC Assessment Assessment IUP 37.1 wk IOL due to IHCP Categ 1 Tracing s/p Cook Sanchez placement Plan Plan Cont current mgmt Induction of labor as planned Plan discussed with: Patient, Other (RN) Visit Coding OBGYN Date of Service: Feb 23, 2025 Billing Provider: CHELLE MARCUM DO INDUSTRIAL ELECTRICIAN JOURNEYMAN Common Visit Codes: PROCEDURE ONLY, NOT BILLABLE CHELLE MARCUM DO Feb 23, 2025 14:30
--- NOTE | 2025-02-23 20:24 | DVHPN2 ---
OB Labor Progress Note Date and Time Seen Date Seen: Feb 23, 2025 Time Seen: 20:10 Subjective Patient reports: No new complaints Objective Vital Signs Afeb VSS Monitoring Method Monitoring Method: External Heart Rate Heart Rate Baseline: 145 Heart Rate Variability: Moderate Presence of FHR Accelerations: Yes Presence of FHR Decelerations: No Contractions Contractions Frequency: Other (every 3 mins) Contractions Intensity: Strong Membranes Membranes: Bulging Amniotic Fluid Color: Clear (AROM) Vaginal Exam Vag Exam Deferred: No Vaginal Exam Dilation: 6 Vaginal Exam Effacement: 70 Vaginal Exam Station: -2 Vaginal Exam Presentation: VTX Vaginal Exam Show: Moderate Medications Medications - Pitocin: No Medication - Epidural: Yes Lab Results Lab Results Current Medications Medications (Trade) Dose Ordered Sig/Gardenia Start Time Stop Time Status Last Admin Dose Admin Lactated Ringer's 1,000 ml @ 125 mls/hr Q8H 02/22/25 10:15 02/22/25 23:05 125 MLS/HR Nalbuphine HCl (Nubain) 10 mg Q4HP PRN 02/22/25 10:15 Penicillin G Potassium 50 ml @ 100 mls/hr ONCE ONCE 02/22/25 10:15 02/22/25 11:07 DC Penicillin G Potassium [id number] units/Dextrose 50 ml @ 100 mls/hr Q4H 02/22/25 14:15 Witch Ani (Tucks) 1 pad PRN PRN 02/22/25 10:15 Sodium Lauryl Sulfate (Phisoderm) 240 ml PRN PRN 02/22/25 10:15 Benzocaine (Dermoplast) 1 applic PRN PRN 02/22/25 10:15 Lidocaine HCl (Xylocaine) 20 ml ONCE PRN 02/22/25 10:15 Ondansetron HCl (Zofran) 4 mg Q4HPRN PRN 02/22/25 10:15 Dinoprostone (Cervidil Suppository) 1 supp ONCE ONCE 02/22/25 11:45 02/22/25 11:46 DC 02/22/25 12:45 1 SUPP Misoprostol (Cytotec) 50 mcg Q4HPRN PRN 02/23/25 04:00 02/23/25 04:01 50 MCG Ephedrine Sulfate (ePHEDrine SULFATE) 10 mg PRN ONCE 02/23/25 12:30 8/17/25 12:32 DC Lactated Ringer's 1,000 ml @ 1,000 mls/hr Q1H ONCE 02/23/25 12:30 02/23/25 13:29 DC Ursodiol (Actigall) 300 mg BID 02/23/25 22:00 Laboratory Tests Test 02/22/25 10:33 02/22/25 10:30 02/22/25 10:12 Range/Units Urine Color Yellow Yellow Urine Clarity Turbid H Clear Urine pH 6.5 5.0-9.0 Urine Specific [place] 1.017 1.001-1.035 Urine Protein Negative Negative Urine Ketones Negative Negative Urine Blood Trace H Negative /uL Urine Nitrite Negative Negative Urine Bilirubin Negative Negative Urine Urobilinogen Normal Negative mg/dL Urine Leukocyte Esterase 3+ Negative /uL Urine RBC 2 0 - 4 /hpf Urine Microscopic WBC 35 H 0-5 /HPF Urine Squamous Epithelial Cells Mod <5 /hpf Urine Bacteria Few H None Seen /hpf Urine Mucus Few None Seen Urine Glucose Normal Normal mg/dL Urine Opiates Screen Neg NEGATIVE Urine Fentanyl Screen Neg NEGATIVE Urine Barbiturates Screen Neg NEGATIVE Urine Phencyclidine Screen Neg NEGATIVE Urine Amphetamines Screen Neg NEGATIVE Urine Benzodiazepines Screen Neg NEGATIVE Urine Cocaine Screen Neg NEGATIVE Urine Cannabinoids Screen Neg NEGATIVE White Blood Count 6.2 4.4-10.8 10^3/uL Red Blood Count 4.60 4.0-5.20 10^6/uL Hemoglobin 13.1 12.2-16.2 g/dL Hematocrit 39.1 36.0-46.0 % Mean Corpuscular Volume 85.0 80.0-100.0 fL Mean Corpuscular Hemoglobin 28.5 28.0-32.0 pg Mean Corpuscular Hemoglobin Concent 33.6 32.0-36.0 g/dL Red Cell Distribution Width 18.2 H 11.8-14.3 % Platelet Count 203 140-450 10^3/uL Mean Platelet Volume 7.9 6.9-10.8 fL Neutrophils (%) (Auto) 68.4 37.0-80.0 % Lymphocytes (%) (Auto) 26.0 10.0-50.0 % Monocytes (%) (Auto) 4.4 0.0-12.0 % Eosinophils (%) (Auto) 0.9 0.0-7.0 % Basophils (%) (Auto) 0.3 0.0-2.0 % Neutrophils # (Auto) 4.3 1.6-8.6 10 ^3/uL Lymphocytes # (Auto) 1.6 0.4-5.4 10 ^3/uL Monocytes # (Auto) 0.3 0-1.3 10 ^3/uL Eosinophils # (Auto) 0.1 0-0.8 10 ^3/uL Basophils # (Auto) 0 0-0.2 10 ^3/uL Nucleated Red Blood Cells 0.1 % Sodium Level 138 136-145 mmol/L Potassium Level 3.2 L 3.5-5.1 mmol/L Chloride Level 104 98-107 mmol/L Carbon Dioxide Level 24 20-31 mmol/L Anion Gap 10 5-15 Blood Urea Nitrogen 8 L 9-23 mg/dL Creatinine 0.61 0.550-1.02 mg/dL Glomerular Filtration Rate Calc 130 >90 mL/min BUN/Creatinine Ratio 13.1 10.0-20.0 Serum Glucose 91 74-106 mg/dL Calcium Level 8.5 L 8.7-10.4 mg/dL Total Bilirubin 0.4 0.2-1.0 mg/dL Aspartate Amino Transferase (AST) 46 H 13-40 U/L Alanine Aminotransferase (ALT) 89 H 7-40 U/L Alkaline Phosphatase 249 H 46-116 U/L Total Protein 6.5 5.7-8.2 g/dL Albumin 3.7 3.2-4.8 g/dL Treponema pallidum Antibody Non-reactive Negative Hepatitis C Antibody Negative Negative Prothrombin Time 9.8 9.3-11.8 sec Prothrombin Time INR 0.92 0.9-1.15 Activated Partial Thromboplast Time 27.3 24.5-34.5 SEC Assessment Assessment Early Term IUP 37+ wk, IHCP Induction of labor s/p cervidil x1, s/p cytotec x 1, s/p Cooks balloon , s/p AROM Plan Plan Continue labor mgmt Pitocin augmentation, if needed. Plan discussed with: Patient Visit Coding OBGYN Date of Service: Feb 23, 2025 Billing Provider: CHELLE MARCUM DO GAS WELDER APPRENTICE Common Visit Codes: [id number] INP/OBS CARE(MOD) CHELLE MARCUM DO Feb 23, 2025 20:24
[2025-02-23] MEDS ORDERED: TERBUTALINE SULFATE 1 MG/ML 1ML VIAL SC PRN (21:00)
[2025-02-23] MEDS ORDERED: LACT. RINGERS/OXYTOCIN 20UNITS 1,000 ML IV SCH (21:00)
[2025-02-23] MEDS ORDERED: PENICILLIN G POT 5MIL/D5 50ML 50 ML IV ONE (21:10)
[2025-02-23] MEDS: PENICILLIN G POT 5MIL/D5 50ML 50 ML IV ONE (21:16)
[2025-02-23] MEDS: ROPIVACAINE HCL 100 ML ONE (21:42)
[2025-02-23] MEDS ORDERED: ROPIVACAINE HCL 100 ML ONE (21:43)
[2025-02-23] MEDS: URSODIOL 300 MG CAP PO SCH (22:33)
[2025-02-24] MEDS: PENICILLIN G POTASSIUM 2,500,000 UNITS in D5W 5% 50 ML IV SCH (00:21)
[2025-02-24] MEDS: LIDOCAINE 2%HCL (LOCAL ANESTH.) INJ 20ML MDV IJ PRN (02:33)
[2025-02-24] MEDS: LACT. RINGERS/OXYTOCIN 20UNITS 500 ML IV ONE ×3 (02:34→04:44)
[2025-02-24] MEDS ORDERED: METHYLERGONOVINE MALEATE 0.2 MG/ML AMP IM ONE ×2 (02:37→03:00)
--- NOTE | 2025-02-24 02:57 | LDN2 ---
Labor and Delivery Note Date 02/24/25 Age 19 1 Para 1 EGA 37+ Diagnosis 1. Intrahepatic Cholestasis of (IHCP) 2. Induction of labor w/ 3. Uterine atony 4. 2nd deg right vaginal laceration Vaginal Delivery: VTX Vacuum Assisted: No Placenta: Spontaneous Sex: Female Weight Pending Apgars 8/9 Amniotic Fluid: Clear Anesthesia Epidural Episiotomy: No Repaired with 2nd deg right vag wall lac repaired w/ 3-0 chromic under 1% lidocaine without epi x 10mL used EBL 400 mL Labs Blood Bank 02/22/25 10:30: Blood Type O POSITIVE Complications Uterine atony, unresponsive to Pitocin, TXA, and IM Methergine Rosina Device placed into uterine cavity and placed under suction per protocol Visit Coding OBGYN Date of Service: Feb 24, 2025 Billing Provider: CHELLE MARCUM DO CASTING MACHINE SET UP OPERATOR Common Visit Codes: PROCEDURE ONLY CASTING MACHINE SET UP OPERATOR Procedure Codes: [id number] OB CARE,VAG DELIVERY (Placement of ROSINA system) CHELLE MARCUM DO Feb 24, 2025 02:57
[2025-02-24] MEDS ORDERED: ONDANSETRON ODT 4 MG TAB PO PRN (03:00)
[2025-02-24 03:31] LABS: Hematocrit 36.3 % (36.0-46.0); Hemoglobin 12.0 g/dL (12.2-16.2); Mean Corpuscular Hemoglobin 28.5 pg (28.0-32.0); Mean Corpuscular Volume 86.1 fL (80.0-100.0); Nucleated Red Blood Cells % 0.0 %
[2025-02-24] MEDS: METHYLERGONOVINE MALEATE 0.2 MG/ML AMP IM ONE (03:33)
[2025-02-24 03:49] LABS: Anion Gap 9 (5-15); BUN/Creatinine Ratio 10.2 (10.0-20.0); Bilirubin, Total 0.6 mg/dL (0.2-1.0); Carbon Dioxide 24 mmol/L (20-31); Chloride 106 mmol/L (98-107); Glucose 83 mg/dL (74-106); Potassium 3.6 mmol/L (3.5-5.1); Sodium 139 mmol/L (136-145)
[2025-02-24 03:51] LABS: INR 0.95 (0.9-1.15); Partial Thromboplastin Time 27.5 SEC (24.5-34.5); Prothrombin Time 10.1 sec (9.3-11.8)
[2025-02-24 04:02] LABS: Alanine Aminotransferase 63 U/L (7-40); Albumin 3.1 g/dL (3.2-4.8); Alkaline Phosphatase 218 U/L (46-116); Blood Urea Nitrogen 6 mg/dL (9-23); Calcium 8.0 mg/dL (8.7-10.4); Total Protein 5.6 g/dL (5.7-8.2)
[2025-02-24] MEDS: NALBUPHINE HCL 10 MG/1ml INJECTION IV PRN (05:23)
[2025-02-24] MEDS ORDERED: IBUPROFEN 800 MG TAB PO SCH (06:00)
[2025-02-24 07:00] VITALS: BP 111/67; PULSE 56; RESP 16; TEMP 98.6; O2SAT 98
[2025-02-24] MEDS: ACETAMINOPHEN 325 MG TAB PO PRN (08:14)
[2025-02-24 11:00] VITALS: BP 107/63; PULSE 57; RESP 17; TEMP 98.3; O2SAT 97
[2025-02-24] MEDS ORDERED: OXYTOCIN 10UNIT/ML 1ML VIAL IV ONE (13:15)
[2025-02-24 15:00] VITALS: BP 111/71; PULSE 68; RESP 18; TEMP 98; O2SAT 97
[2025-02-24 15:07] LABS: Hematocrit 30.4 % (36.0-46.0); Hemoglobin 9.9 g/dL (12.2-16.2); Mean Corpuscular Hemoglobin 28.1 pg (28.0-32.0); Mean Corpuscular Volume 86.6 fL (80.0-100.0); Nucleated Red Blood Cells % 0.1 %
[2025-02-24 19:00] VITALS: BP 92/58; PULSE 65; RESP 15; TEMP 98.5; O2SAT 99
[2025-02-24] MEDS: DOCUSATE SOD 100 MG CAP PO SCH (22:40)
[2025-02-24] MEDS ORDERED: IBUPROFEN 800 MG TAB PO PRN (23:00)
[2025-02-24 23:05] VITALS: BP 98/60; PULSE 67; RESP 17; TEMP 97.7; O2SAT 99
[2025-02-25 02:30] VITALS: BP 98/53; PULSE 65; RESP 18; TEMP 97.7; O2SAT 99
[2025-02-25] MEDS ORDERED: DOCU-265 PO (05:33)
[2025-02-25] MEDS ORDERED: IBUP-1455 PO (05:33)
[2025-02-25] MEDS ORDERED: FERR30CA PO (05:33)
--- NOTE | 2025-02-25 05:36 | DVHDS2 ---
Discharge Summary Date of Admission Feb 22, 2025 at 09:59 Date of Discharge: Feb 25, 2025 Admitting Diagnosis intrahepatic cholestasis of , IUP 37+ wk Labs/Diagnostic Data: Laboratory Results Test 02/24/25 14:40 02/24/25 03:20 02/22/25 10:33 02/22/25 10:30 White Blood Count 11.5 10^3/uL (4.4-10.8) Red Blood Count 3.51 10^6/uL (4.0-5.20) Hemoglobin 9.9 g/dL (12.2-16.2) Hematocrit 30.4 % (36.0-46.0) Mean Corpuscular Volume 86.6 fL (80.0-100.0) Mean Corpuscular Hemoglobin 28.1 pg (28.0-32.0) Mean Corpuscular Hemoglobin Concent 32.5 g/dL (32.0-36.0) Red Cell Distribution Width 16.5 % (11.8-14.3) Platelet Count 160 10^3/uL (140-450) Mean Platelet Volume 8.0 fL (6.9-10.8) Neutrophils (%) (Auto) 77.7 % (37.0-80.0) Lymphocytes (%) (Auto) 16.8 % (10.0-50.0) Monocytes (%) (Auto) 5.2 % (0.0-12.0) Eosinophils (%) (Auto) 0.2 % (0.0-7.0) Basophils (%) (Auto) 0.1 % (0.0-2.0) Neutrophils # (Auto) 8.9 10 ^3/uL (1.6-8.6) Lymphocytes # (Auto) 1.9 10 ^3/uL (0.4-5.4) Monocytes # (Auto) 0.6 10 ^3/uL (0-1.3) Eosinophils # (Auto) 0 10 ^3/uL (0-0.8) Basophils # (Auto) 0 10 ^3/uL (0-0.2) Nucleated Red Blood Cells 0.1 % Prothrombin Time 10.1 sec (9.3-11.8) Prothrombin Time INR 0.95 (0.9-1.15) Activated Partial Thromboplast Time 27.5 SEC (24.5-34.5) Sodium Level 139 mmol/L (136-145) Potassium Level 3.6 mmol/L (3.5-5.1) Chloride Level 106 mmol/L (98-107) Carbon Dioxide Level 24 mmol/L (20-31) Anion Gap 9 (5-15) Blood Urea Nitrogen 6 mg/dL (9-23) Creatinine 0.59 mg/dL (0.550-1.02) Glomerular Filtration Rate Calc 131 mL/min (>90) BUN/Creatinine Ratio 10.2 (10.0-20.0) Serum Glucose 83 mg/dL (74-106) Calcium Level 8.0 mg/dL (8.7-10.4) Total Bilirubin 0.6 mg/dL (0.2-1.0) Aspartate Amino Transferase (AST) 41 U/L (13-40) Alanine Aminotransferase (ALT) 63 U/L (7-40) Alkaline Phosphatase 218 U/L (46-116) Total Protein 5.6 g/dL (5.7-8.2) Albumin 3.1 g/dL (3.2-4.8) Urine Color Yellow (Yellow) Urine Clarity Turbid (Clear) Urine pH 6.5 (5.0-9.0) Urine Specific [place] 1.017 (1.001-1.035) Urine Protein Negative (Negative) Urine Ketones Negative (Negative) Urine Blood Trace /uL (Negative) Urine Nitrite Negative (Negative) Urine Bilirubin Negative (Negative) Urine Urobilinogen Normal mg/dL (Negative) Urine Leukocyte Esterase 3+ /uL (Negative) Urine RBC 2 /hpf (0 - 4) Urine Microscopic WBC 35 /HPF (0-5) Urine Squamous Epithelial Cells Mod /hpf (<5) Urine Bacteria Few /hpf (None Seen) Urine Mucus Few (None Seen) Urine Glucose Normal mg/dL (Normal) Urine Opiates Screen Neg (NEGATIVE) Urine Fentanyl Screen Neg (NEGATIVE) Urine Barbiturates Screen Neg (NEGATIVE) Urine Phencyclidine Screen Neg (NEGATIVE) Urine Amphetamines Screen Neg (NEGATIVE) Urine Benzodiazepines Screen Neg (NEGATIVE) Urine Cocaine Screen Neg (NEGATIVE) Urine Cannabinoids Screen Neg (NEGATIVE) Treponema pallidum Antibody Non-reactive (Negative) Hepatitis C Antibody Negative (Negative) Other Laboratory Tests 02/24/25 14:40 02/24/25 03:20 Brief Hx & Hospital Course: induction of labor w/ pp uterine atony s/p Rosina device placement pp anemia, precipitous drop in h/h, stable Operations or Procedures Condition at Discharge: Stable Final Diagnosis/Problems List Term , delivered Precipitous drop in H/H Secondary Diagnosis: intrahepatic cholestasis of Discharge Disposition: Home Discharge Instruct/Medications Diet: Regular Activity: Light activity Activity comment: pelvic rest x 6 wk Follow Up/Referral: 2-[address] Allen Medications: Accrufer, Ibuprofen, PNL vitamins, Colace Scheduled Ferric Maltol (Accrufer), 30 MG PO BID Vit W/ Ferrous Fumara ( One Daily), 1 TAB PO DAILY, (Reported) Ursodiol (Ursodiol), 300 MG PO BID Scheduled PRN Docusate Sodium (Docusate Sodium), 200 MG PO BID PRN Ibuprofen Micronized (Ibuprofen), 600 MG PO Q6HPRN PRN Discharge Statement: "Patient was advised to return to the ER or call 911 if any headaches, dizziness, shortness of breath, chest pain, abdominal pain, bleeding, fevers, or worsening of medical condition. Patient was counseled about treatment plan, medications, possible side effects, patientverbalized understanding. All questions were answered to the best of my ability. This discharge took greater then 30 minutes in planning, reviewing documentation, counseling the patient, and discussing with other team members." ASSESSMENT ASSESSMENT Assessment Term , delivered Precipitous drop in H/H Visit Coding OBGYN Date of Service: Feb 25, 2025 Billing Provider: CHELLE MARCUM DO DIVER'S TENDER Common Visit Codes: [id number] DISCH DAY <30MIN CHELEL MARCUM DO Feb 25, 2025 05:36
[2025-02-25] MEDS ORDERED: ONDANSETRON HCL 4 MG/2 ML VIAL IV PRN (06:00)
[2025-02-25] MEDS ORDERED: LACTATED RINGER'S 1,000 ML IV ONE (06:00)
[2025-02-25 06:47] VITALS: BP 117/83; PULSE 72; RESP 18; TEMP 97.9; O2SAT 97
[2025-02-25 10:05] VITALS: BP 111/79; PULSE 61; RESP 18; TEMP 98.6; O2SAT 97
== END 2025-02-25 10:05 | disposition home or self-care (01) | DRG 560 ==
LOC: LDRP 09:59
PROVIDERS: ADMIT Obstetrics & Gynecology; ATTEND Obstetrics & Gynecology
PROC: 3E0P7VZ Introduction of Hormone into Female Reproductive, Via Natural or Artificial Opening (ICD-10-PCS; 2025-02-22)
PROC: 3E0DXGC Introduction of Other Therapeutic Substance into Mouth and Pharynx, External Approach (ICD-10-PCS; 2025-02-23)
PROC: 0U7C7DJ Dilation of Cervix with Intraluminal Device, Temporary, Via Natural or Artificial Opening (ICD-10-PCS; 2025-02-23)
PROC: 10907ZC Drainage of Amniotic Fluid, Therapeutic from Products of Conception, Via Natural or Artificial Opening (ICD-10-PCS; 2025-02-23)
PROC: 10E0XZZ Delivery of Products of Conception, External Approach (ICD-10-PCS; principal; 2025-02-24)
PROC: 0KQM0ZZ Repair Perineum Muscle, Open Approach (ICD-10-PCS; 2025-02-24)
PROC: 3E0R3BZ Introduction of Anesthetic Agent into Spinal Canal, Percutaneous Approach (ICD-10-PCS; 2025-02-24)
PROC: 00HU33Z Insertion of Infusion Device into Spinal Canal, Percutaneous Approach (ICD-10-PCS; 2025-02-24)
DX: O26.643 Intrahepatic cholestasis of pregnancy, third trimester (principal); Z37.0 Single live birth; K76.89 Other specified diseases of liver; O72.1 Other immediate postpartum hemorrhage; R71.0 Precipitous drop in hematocrit; Z3A.37 37 weeks gestation of pregnancy; O90.81 Anemia of the puerperium; O70.1 Second degree perineal laceration during delivery
CPT/HCPCS: 36415; 59200; 59409; 62282; 80053; 80307; 81001; 85025; 85610; 85730; 86780; 86803; 86850; 86900; 86901; 94760; 94762; 96361; 96365; 96366; G0378; J2540; J2590; J7060

== ENCOUNTER 2025-04-01 17:48 | Inpatient (IN) | payer MEDICAID ==
[~2025-04-01] VITALS: Ht 167.6 cm; Wt 52.8 kg
[~2025-04-01 17:48] MED LIST changes: +DOCU-265 PO; +FERR30CA PO; +IBUP-1455 PO; -URSO300C2 PO
--- NOTE | 2025-04-01 18:28 | ED.PDOC ---
History of Present Illness HPI Comments 19-year-old female status post vaginal delivery 1 month ago then she had appendectomy 2 weeks ago and cholecystectomy a few days ago now complains of fevers and malaise and left flank pain and dull frontal headache for the last 2 days. Patient noted to be febrile 103.1 Chief Complaint: Vaginal Bleed Time Seen by MD: 18:16 Allergies: Coded Allergies: NO KNOWN ALLERGIES (Unverified , 02/11/25) Home Meds Active Scripts Ferric Maltol (Accrufer) 30 Mg Cap, 30 MG PO BID, #60 CAP Prov:CHELLE MARCUM DO 02/25/25 Ibuprofen Micronized (Ibuprofen) 800 Mg Tab, 600 MG PO Q6HPRN PRN, #30 TAB Prov:CHELLE MARCUM DO 02/25/25 Docusate Sodium (Docusate Sodium) 100 Mg Cap, 200 MG PO BID PRN, #30 CAP Prov:CHELLE MARCUM DO 02/25/25 Reported Medications Vit W/ Ferrous Fumara ( One Daily) Daily Tab, 1 TAB PO DAILY, #90 TAB 3 Refills 02/07/25 Information Source: Patient Mode of Arrival: Ambulatory Severity: Moderate, Severe Timing: Days Duration: Since onset Past Medical History Past Medical History (Other): Recent delivery Surgical History: Appendectomy, Cholecystectomy Social History Smoker: Non-Smoker Alcohol: Rarely Drugs: Denies Drug Use Constitutional: reports: chills, fever, malaise Gastrointestinal: reports: abdominal pain Neurological: reports: headache All Other Systems: Reviewed and Negative Physical Exam Exam Comments Febrile General Appearance: Moderate Distress HEENT: Normal ENT Inspection, Pharynx Normal, TMs Normal Neck: Full Range of Motion, Other (No nuchal rigidity) Respiratory: Chest Non-Tender, Lungs Clear, No Accessory Muscle Use, No Respiratory Distress, Normal Breath Sounds Cardiovascular: No Edema, No JVD, No Murmur, No Gallop, Normal Peripheral Pulses, Regular Rate/Rhythm Breast Exam: Deferred Gastrointestinal: Tenderness, Other (Left CVA tenderness) Genitalia: Deferred Pelvic: Deferred Rectal: Deferred Extremities: No calf tenderness, Normal capillary refill, Normal inspection, Normal range of motion, Non-tender, No pedal edema Musculoskeletal : Apperance: Normal Neurologic: Alert, direct support professional home health II-XII nml as Tested, No Motor Deficits, Normal Affect, Normal Mood, No Sensory Deficits Cerebellar Function: Normal Reflexes: Normal Skin: Dry, Normal Color, Warm Lymphatic: No Adenopathy Was a procedure done? Was a procedure done?: No Differential Dx Considerations may include: Differential diagnosis includes but not limited to: UTI, pyelonephritis, sepsis, intra-abdominal abscess, meningitis and others X-Ray, Labs, Meds, VS Vital Signs Date Time Temp Pulse Resp B/P (MAP) Pulse Ox O2 Delivery O2 Flow Rate FiO2 04/01/25 20:42 101.4 04/01/25 19:37 101.4 100 20 93/42 (59) 97 101.4 04/01/25 19:37 100 20 97 Room Air* 0 21 04/01/25 19:08 100.5 100.5 04/01/25 18:46 Room Air* 0 21 04/01/25 18:40 103.3 147 19 89/43 (58) 96 103.3 04/01/25 18:35 103.3 04/01/25 18:35 103.3 04/01/25 18:04 103.3 162 20 137/95 98 103.3 Lab Test 04/01/25 20:51 04/01/25 18:58 Range/Units Lactic Acid Level 0.8 2.5 *H 0.4-2.0 mmol/L White Blood Count 8.4 4.4-10.8 10^3/uL Red Blood Count 4.13 4.0-5.20 10^6/uL Hemoglobin 10.4 L 12.2-16.2 g/dL Hematocrit 33.1 L 36.0-46.0 % Mean Corpuscular Volume 80.3 80.0-100.0 fL Mean Corpuscular Hemoglobin 25.3 L 28.0-32.0 pg Mean Corpuscular Hemoglobin Concent 31.5 L 32.0-36.0 g/dL Red Cell Distribution Width 17.8 H 11.8-14.3 % Platelet Count 224 140-450 10^3/uL Mean Platelet Volume 8.0 6.9-10.8 fL Neutrophils (%) (Auto) 86.3 H 37.0-80.0 % Lymphocytes (%) (Auto) 10.1 10.0-50.0 % Monocytes (%) (Auto) 2.9 0.0-12.0 % Eosinophils (%) (Auto) 0.5 0.0-7.0 % Basophils (%) (Auto) 0.2 0.0-2.0 % Neutrophils # (Auto) 7.2 1.6-8.6 10 ^3/uL Lymphocytes # (Auto) 0.8 0.4-5.4 10 ^3/uL Monocytes # (Auto) 0.2 0-1.3 10 ^3/uL Eosinophils # (Auto) 0 0-0.8 10 ^3/uL Basophils # (Auto) 0 0-0.2 10 ^3/uL Nucleated Red Blood Cells 0.1 % Sodium Level 139 136-145 mmol/L Potassium Level 3.4 L 3.5-5.1 mmol/L Chloride Level 106 98-107 mmol/L Carbon Dioxide Level 22 20-31 mmol/L Anion Gap 11 5-15 Blood Urea Nitrogen 11 9-23 mg/dL Creatinine 0.56 0.550-1.02 mg/dL Glomerular Filtration Rate Calc 133 >90 mL/min BUN/Creatinine Ratio 19.6 10.0-20.0 Serum Glucose 100 74-106 mg/dL Calcium Level 8.3 L 8.7-10.4 mg/dL Total Bilirubin 0.9 0.2-1.0 mg/dL Aspartate Amino Transferase (AST) 49 H 13-40 U/L Alanine Aminotransferase (ALT) 64 H 7-40 U/L Alkaline Phosphatase 266 H 46-116 U/L Total Protein 7.0 5.7-8.2 g/dL Albumin 3.9 3.2-4.8 g/dL Current Medications Medications (Trade) Dose Ordered Sig/Gardenia Route Start Time Stop Time Status Last Admin Acetaminophen (Tylenol Tablet Or Capsule) 1,000 mg ONCE ONCE PO 04/01/25 18:15 04/01/25 18:16 DC 04/01/25 18:35 Sodium Chloride 1,000 ml @ 1,000 mls/hr Q1H ONCE IVB 04/01/25 18:30 04/01/25 19:29 DC 04/01/25 18:33 Ibuprofen (Motrin Tablet) 600 mg ONCE ONCE PO 04/01/25 18:30 04/01/25 18:31 DC 04/01/25 18:35 Piperacillin Sod/ Tazobactam Sod 100 ml @ 100 mls/hr ONCE ONCE IV 04/01/25 18:30 04/01/25 19:29 DC 04/01/25 19:30 Time of 1ST Reevaluation: 20:00 Reevaluation 1ST: Unchanged Patient Education/Counseling: Diagnosis, Treatment Family Education/Counseling: Diagnosis, Treatment SEPSIS Sepsis Screen Date sepsis recognized/suspect: Apr 01, 2025 Time Sepsis recognized/suspect: 1807 Recent Procedure: Yes On Antibiotic Therapy: No Respiratory Rate >20: No Heart Rate >90: Yes Temp<36 C (96.8 F) or >38.3 C: Yes SBP <90 or MAP <65 mmHG: No New Acute Mental Status Change: No Is the patient on CPAP, BIPAP,: No Physician Orders Urinalysis (04/01/25 18:22) Ct Ab Pel With Iv Con Only (04/01/25 18:22) Blood Culture (04/01/25 18:22) Vital Signs Date Time Temp Pulse Resp B/P (MAP) Pulse Ox O2 Delivery O2 Flow Rate FiO2 04/01/25 20:42 101.4 04/01/25 19:37 101.4 100 20 93/42 (59) 97 101.4 04/01/25 19:37 100 20 97 Room Air* 0 21 04/01/25 19:08 100.5 100.5 04/01/25 18:46 Room Air* 0 21 04/01/25 18:40 103.3 147 19 89/43 (58) 96 103.3 04/01/25 18:35 103.3 04/01/25 18:35 103.3 04/01/25 18:04 103.3 162 20 137/95 98 103.3 Laboratory Tests Test 04/01/25 18:58 04/01/25 20:51 Lactic Acid Level 2.5 mmol/L (0.4-2.0) *H 0.8 mmol/L (0.4-2.0) White Blood Count 8.4 10^3/uL (4.4-10.8) Medications Medications Dose Ordered Sig/Gardenia Route Start Time Stop Time Status Last Admin Dose Admin Acetaminophen 1,000 mg ONCE ONCE PO 04/01/25 18:15 04/01/25 18:16 DC 04/01/25 18:35 Ibuprofen 600 mg ONCE ONCE PO 04/01/25 18:30 04/01/25 18:31 DC 04/01/25 18:35 Piperacillin Sod/ Tazobactam Sod 100 ml @ 100 mls/hr ONCE ONCE IV 04/01/25 18:30 04/01/25 19:29 DC 04/01/25 19:30 Sodium Chloride 1,000 ml @ 1,000 mls/hr Q1H ONCE IVB 04/01/25 18:30 04/01/25 19:29 DC 04/01/25 18:33 Departure 1 Departure Time of Disposition: 21:21 Impression: Primary Impression: Postoperative fever Additional Impressions: Hypotension Left flank pain Urinary tract infection Disposition: ADMITTED INPATIENT Admit to: Med Surg Condition: Guarded Discharged With: Self Comments 19-year-old female status post vaginal delivery, appendectomy and cholecystectomy now fevers and hypotension. Patient was given IV fluids and IV Zosyn antibiotics. Her blood pressure improved. CT of the abdomen and pelvis shows possible colitis. I suspect UTI/pyelonephritis. Patient will need to be admitted for supportive care and further workup. Critical Care Note Critical Care Time?: Yes Critical care comment: Total critical care time: Approximately 36 minutes Due to a high probability of clinically significant, life threatening deterioration, the patient required my highest level of preparedness to intervene emergently and I personally spent this critical care time directly and personally managing the patient. This critical care time included obtaining a history; examining the patient; pulse oximetry; ordering and review of studies; arranging urgent treatment with development of a management plan; evaluation of patient's response to treatment; frequent reassessment; and, discussions with other providers. This critical care time was performed to assess and manage the high probability of imminent, life-threatening deterioration that could result in multi-organ failure. It was exclusive of separately billable procedures and treating other patients. Stability Stability form required: No Heart Score Heart Score: Heart Score Response (Comments) Value History N/A 0 EKG N/A 0 Age N/A 0 Risk Factors N/A 0 Troponin N/A 0 Total 0 JUNIOR HUGHES MD Apr 01, 2025 18:28
[2025-04-01] MEDS: SODIUM CHLORIDE 0.9% 1,000 ML IVB ONE (18:33)
[2025-04-01] MEDS: IBUPROFEN 600 MG TAB PO ONE (18:35)
[2025-04-01] MEDS: ACETAMINOPHEN 500 MG TAB or CAP PO ONE (18:35)
[2025-04-01 19:21] LABS: Hematocrit 33.1 % (36.0-46.0); Hemoglobin 10.4 g/dL (12.2-16.2); Mean Corpuscular Hemoglobin 25.3 pg (28.0-32.0); Mean Corpuscular Volume 80.3 fL (80.0-100.0); Nucleated Red Blood Cells % 0.1 %
[2025-04-01 19:29] LABS: Chloride 106 mmol/L (98-107); Sodium 139 mmol/L (136-145)
[2025-04-01 19:30] LABS: Anion Gap 11 (5-15); Carbon Dioxide 22 mmol/L (20-31)
[2025-04-01] MEDS: PIPERACILLIN-TAZOB 3.375GM 100 ML IV ONE (19:30)
[2025-04-01 19:35] LABS: BUN/Creatinine Ratio 19.6 (10.0-20.0); Blood Urea Nitrogen 11 mg/dL (9-23); Glucose 100 mg/dL (74-106); Total Protein 7.0 g/dL (5.7-8.2)
[2025-04-01 19:37] VITALS: PULSE 100; RESP 20; O2SAT 97
[2025-04-01 19:37] LABS: Albumin 3.9 g/dL (3.2-4.8); Bilirubin, Total 0.9 mg/dL (0.2-1.0)
[2025-04-01 19:39] LABS: Alkaline Phosphatase 266 U/L (46-116); Calcium 8.3 mg/dL (8.7-10.4); Potassium 3.4 mmol/L (3.5-5.1)
[2025-04-01 19:41] LABS: Lactic Acid w/Reflex 2.5 mmol/L (0.4-2.0)
[2025-04-01 19:52] LABS: Alanine Aminotransferase 64 U/L (7-40)
[2025-04-01] MEDS: IOHEXOL 300 MG/ML 100ML BOTTLE IJ ONE (20:15)
--- NOTE | 2025-04-01 20:48 | DVH ---
Exam: CT CT AB PEL WITH IV CON ONLY History: fever, abd pain s/p appendectomy and cholecystectomy Comparison Study: None TECHNIQUE: A digital pile driver image was obtained. During the uneventful, intravenous administration of c ontrast material, multislice data acquisition was obtained through the abdomen and pelvis. The data s et was subsequently reconstructed into multiplanar reformats. RADIATION DOSE: CTDI vol 5.70 mGy. DLP 293.69 mGy.cm Findings: Lungs: The lung bases are clear. Liver: Unremarkable. Spleen: Borderline splenomegaly. Pancreas: Unremarkable. Gallbladder: Prior cholecystectomy with minimal stranding in the gallbladder fossa. Adrenals: Unremarkable Kidneys: Unremarkable. Pelvic Viscera: Retroverted uterus. Vasculature: Unremarkable. Retroperitoneum: Shotty retroperitoneal nodes. Bowel: No bowel obstruction. There is mild wall thickening and stranding about the ascending colon. P rior appendectomy. Musculoskeletal: Unremarkable. Soft tissues: Unremarkable Impression: 1. Prior cholecystectomy with minimal stranding in the gallbladder fossa. Further clinical correlati on is suggested, infectious/inflammatory process cannot be entirely excluded. 2. Mild wall thickening and stranding about the ascending colon, colitis cannot be excluded in the ap propriate clinical setting. 3. Additional findings as detailed.
[2025-04-01 22:25] LABS: Urine Protein, UAD Negative (Negative)
[2025-04-01] MEDS ORDERED: MORPHINE SULFATE INJ 2 MG/ml SYRG IV PRN (22:45)
[2025-04-01] MEDS ORDERED: HYDROcodone-ACET 5/325MG TAB PO PRN (22:45)
[2025-04-01] MEDS ORDERED: ONDANSETRON HCL 4 MG/2 ML VIAL IV PRN (22:45)
[2025-04-01] MEDS ORDERED: NITROGLYCERIN 0.4 MG SL TAB SL PRN (22:45)
[2025-04-01] MEDS ORDERED: TEMAZEPAM 15 MG CAP PO PRN (22:45)
[2025-04-01 23:10] LABS: Total Iron Binding Capacity 356.0 ug/dL (250-425)
[2025-04-01 23:13] LABS: Iron 28.0 ug/dL (50-170)
[2025-04-01] MEDS: SODIUM CHLORIDE 0.9% 1,000 ML IV ONE (23:24)
--- NOTE | 2025-04-01 23:48 | DVH ---
INDICATION: Vaginal bleed TECHNIQUE: Multiple real-time grayscale transabdominal sonographic images along with color and duplex doppler of the uterus and ovaries were obtained. COMPARISON: None FINDINGS: The uterus is retroverted and measures 7.4 X 5.3 X 4.9 cm. The endometrial stripe measures 1.7 cm. Right ovary measures 2.8 X 1.2 X 2.5 cm with normal Doppler color flow Left ovary measures 2.6 X 1.5 X 2.7 cm with normal Doppler color flow IMPRESSION: Thickened endometrium. Suggest a follow-up ultrasound in 6-8 weeks for reassessment.
[2025-04-02] VITALS (8 sets, daily range): BP systolic 79–107; BP diastolic 37–63; PULSE 58–104; RESP 12–21; TEMP 97.7–99.2; O2SAT 58–100
[2025-04-02] MEDS: SODIUM CHLORIDE 0.9% 1,000 ML IV ONE (02:30)
[2025-04-02] MEDS: ALBUMIN 5% 250 ML IV ONE (03:00)
--- NOTE | 2025-04-02 05:01 | DVHHP2 ---
History of Present Illness Reason for Visit: Vaginal bleed History of Present Illness [id number] female presents for evaluation of vaginal bleeding. Patient reports having a vaginal delivery a month ago. She states that last week patient underwent appendectomy and cholecystectomy. Reports mild lower abdo josé miguel cramping. She noticed her urine pinkish in color over the past couple of days. No dysuria. She also felt feverish today. No nausea or vomiting. Past Medical History Denies Past Surgical History Appendectomy and cholecystectomy Family History Noncontributory Smoke: No ALCOHOL: occassional Drugs: None Lives: with Family Review of Systems Review of Systems Review of systems are currently negative otherwise addressed in HPI. Allergies: Coded Allergies: NO KNOWN ALLERGIES (Unverified , 02/11/25) Medications Current Medications Medications Dose Ordered Sig/Gardenia Route Start Time Stop Time Status Last Admin Dose Admin Piperacillin Sod/ Tazobactam Sod 100 ml @ 25 mls/hr Q8HR IV 04/02/25 06:00 Acetaminophen/ Hydrocodone Bitart 1 tab Q4HP PRN PO 04/01/25 22:45 Temazepam 15 mg QHSP PRN PO 04/01/25 22:45 Ondansetron HCl 4 mg Q4HP PRN IV 04/01/25 22:45 Acetaminophen 650 mg Q6HP PRN PO 04/01/25 22:45 Nitroglycerin 0.4 mg Q5MINP PRN SL 04/01/25 22:45 Morphine Sulfate 2 mg Q30M PRN IV 04/01/25 22:45 Exam Vital Signs Vital Signs Date Time Temp Pulse Resp B/P (MAP) Pulse Ox O2 Delivery O2 Flow Rate FiO2 04/02/25 04:39 97.7 97.7 04/02/25 04:15 62 16 102/63 (76) 99 04/01/25 19:37 Room Air* 0 21 Exam Gen: 19-year-old female in mild distress Skin: Warm, dry, normal color and texture, no rash. HEENT: Normocephalic atraumatic, mucous membranes moist and pink. Neck: Cervical and supraclavicular nodes normal without enlargement, trachea is midline, thyroid gland is normal without masses. Pulmonary: Clear to auscultation and percussion bilaterally. Cardiac: Regular rate and rhythm. No murmur Abdomen: Soft, nontender, nondistended, bowel sounds present all 4 quadrants, no guarding, no rigidity, no organomegaly. Extremities: No cyanosis, clubbing, no edema Neuro: Cranial nerves II through XII grossly intact, normal affect and speech, no focal motor deficits. Labs/Xrays ORDERING PHYSICIAN: TOVA PAEZ PROCEDURE(s): PELUS - PELVIC REASON: Vaginal bleed ORDER NUMBER(s): [id number], ACCESSION NUMBER(s): [id number] INDICATION: Vaginal bleed TECHNIQUE: Multiple real-time grayscale transabdominal sonographic images along with color and duplex doppler of the uterus and ovaries were obtained. COMPARISON: None FINDINGS: The uterus is retroverted and measures 7.4 X 5.3 X 4.9 cm. The endometrial stripe measures 1.7 cm. Right ovary measures 2.8 X 1.2 X 2.5 cm with normal Doppler color flow Left ovary measures 2.6 X 1.5 X 2.7 cm with normal Doppler color flow IMPRESSION: Thickened endometrium. Suggest a follow-up ultrasound in 6-8 weeks for reassessment. RING PHYSICIAN: JUNIOR HUGHES MD PROCEDURE(s): ABPLIV - CT AB PEL WITH IV CON ONLY REASON: fever, abd pain s/p appendectomy and cholecystectomy ORDER NUMBER(s): [id number], ACCESSION NUMBER(s): [id number] Exam: CT CT AB PEL WITH IV CON ONLY History: fever, abd pain s/p appendectomy and cholecystectomy Comparison Study: None TECHNIQUE: A digital police commanding officer image was obtained. During the uneventful, intravenous administration of contrast material, multislice data acquisition was obtained through the abdomen and pelvis. The data set was subsequently reconstructed into multiplanar reformats. RADIATION DOSE: CTDI vol 5.70 mGy. DLP 293.69 mGy.cm Findings: Lungs: The lung bases are clear. Liver: Unremarkable. Spleen: Borderline splenomegaly. Pancreas: Unremarkable. Gallbladder: Prior cholecystectomy with minimal stranding in the gallbladder fossa. Adrenals: Unremarkable Kidneys: Unremarkable. Pelvic Viscera: Retroverted uterus. Vasculature: Unremarkable. Retroperitoneum: Shotty retroperitoneal nodes. Bowel: No bowel obstruction. There is mild wall thickening and stranding about the ascending colon. Prior appendectomy. Musculoskeletal: Unremarkable. Soft tissues: Unremarkable Impression: 1. Prior cholecystectomy with minimal stranding in the gallbladder fossa. Further clinical correlation is suggested, infectious/inflammatory process cannot be entirely excluded. 2. Mild wall thickening and stranding about the ascending colon, colitis cannot be excluded in the appropriate clinical setting. 3. Additional findings as detailed. Labs Test 04/01/25 22:00 04/01/25 20:51 04/01/25 18:58 Range/Units Urine Color Light-yellow Yellow Urine Clarity Clear Clear Urine pH 6.5 5.0-9.0 Urine Specific [place] 1.034 1.001-1.035 Urine Protein Negative Negative Urine Ketones Negative Negative Urine Blood 3+ H Negative /uL Urine Nitrite Negative Negative Urine Bilirubin Negative Negative Urine Urobilinogen Normal Negative mg/dL Urine Leukocyte Esterase Negative Negative /uL Urine RBC 139 0 - 4 /hpf Urine Microscopic WBC 1 0-5 /HPF Urine Squamous Epithelial Cells Few <5 /hpf Urine Bacteria None seen None Seen /hpf Urine Glucose Normal Normal mg/dL Lactic Acid Level 0.8 0.4-2.0 mmol/L White Blood Count 8.4 4.4-10.8 10^3/uL Red Blood Count 4.13 4.0-5.20 10^6/uL Hemoglobin 10.4 L 12.2-16.2 g/dL Hematocrit 33.1 L 36.0-46.0 % Mean Corpuscular Volume 80.3 80.0-100.0 fL Mean Corpuscular Hemoglobin 25.3 L 28.0-32.0 pg Mean Corpuscular Hemoglobin Concent 31.5 L 32.0-36.0 g/dL Red Cell Distribution Width 17.8 H 11.8-14.3 % Platelet Count 224 140-450 10^3/uL Mean Platelet Volume 8.0 6.9-10.8 fL Neutrophils (%) (Auto) 86.3 H 37.0-80.0 % Lymphocytes (%) (Auto) 10.1 10.0-50.0 % Monocytes (%) (Auto) 2.9 0.0-12.0 % Eosinophils (%) (Auto) 0.5 0.0-7.0 % Basophils (%) (Auto) 0.2 0.0-2.0 % Neutrophils # (Auto) 7.2 1.6-8.6 10 ^3/uL Lymphocytes # (Auto) 0.8 0.4-5.4 10 ^3/uL Monocytes # (Auto) 0.2 0-1.3 10 ^3/uL Eosinophils # (Auto) 0 0-0.8 10 ^3/uL Basophils # (Auto) 0 0-0.2 10 ^3/uL Nucleated Red Blood Cells 0.1 % Sodium Level 139 136-145 mmol/L Potassium Level 3.4 L 3.5-5.1 mmol/L Chloride Level 106 98-107 mmol/L Carbon Dioxide Level 22 20-31 mmol/L Anion Gap 11 5-15 Blood Urea Nitrogen 11 9-23 mg/dL Creatinine 0.56 0.550-1.02 mg/dL Glomerular Filtration Rate Calc 133 >90 mL/min BUN/Creatinine Ratio 19.6 10.0-20.0 Serum Glucose 100 74-106 mg/dL Calcium Level 8.3 L 8.7-10.4 mg/dL Iron Level 28 L 50-170 ug/dL Total Iron Binding Capacity 356 250-425 ug/dL Percent Iron Saturation 7.9 L 15-50 % Total Bilirubin 0.9 0.2-1.0 mg/dL Aspartate Amino Transferase (AST) 49 H 13-40 U/L Alanine Aminotransferase (ALT) 64 H 7-40 U/L Alkaline Phosphatase 266 H 46-116 U/L Total Protein 7.0 5.7-8.2 g/dL Albumin 3.9 3.2-4.8 g/dL SEPSIS Sepsis Screen Date sepsis recognized/suspect: Apr 01, 2025 Time Sepsis recognized/suspect: 1944 Recent Procedure: Yes On Antibiotic Therapy: No Respiratory Rate >20: Yes Heart Rate >90: Yes Temp<36 C (96.8 F) or >38.3 C: Yes SBP <90 or MAP <65 mmHG: No New Acute Mental Status Change: No Is the patient on CPAP, BIPAP,: No Physician Orders Sodium Chloride 0.9% (04/01/25 22:45) Piperacillin-Tazob 3.375gm (Zosyn 3.375g (04/02/25 06:00) Regular Diet (04/02/25 Breakfast) Admit (04/01/25 22:36) Hydrocodone-Acet 5/325mg Tab ([place] 5/32 (04/01/25 22:45) Temazepam (Restoril) (04/01/25 22:45) Ondansetron Hcl (Zofran) (04/01/25 22:45) Complete Blood Count (04/02/25 04:00) Comprehensive Metabolic Panel (04/02/25 04:00) Condition: Stable (04/01/25 22:36) Acetaminophen Tablet (Tylenol Tablet) (04/01/25 22:45) Bedrest With Bathroom Privileg (04/01/25 22:36) Nitroglycerin Sublingual (Ntrostat Subli (04/01/25 22:45) Morphine Sulfate Injection (04/01/25:45) Stat Ekg For Chest Pain (04/01/25:36) Notify Md Of Changes From Base (04/01/25 22:36) Radio Script Writer For 24 Hours (04/01/25 22:36) Emergency Dysrhythmia Protocol (04/01/25 22:36) Rhythm Strips Once Every Shift (04/01/25 22:36) Oxygen By Nasal Cannula (04/01/25 22:36) Pelvic (04/01/25 22:36) PTPTT (04/02/25 04:51) NS (04/02/25 05:00) Vital Signs Date Time Temp Pulse Resp B/P (MAP) Pulse Ox O2 Delivery O2 Flow Rate FiO2 04/02/25 04:39 97.7 97.7 04/02/25 04:15 62 16 102/63 (76) 99 04/02/25 04:00 58 17 92/56 (68) 98 04/02/25 03:00 58 17 84/44 (57) 58 04/02/25 02:00 67 16 91/48 (62) 100 04/02/25 01:00 98.3 70 18 79/37 (51) 97 98.3 04/01/25 22:00 73 20 94/46 (62) 100 04/01/25 21:00 67 24 99/45 (63) 99 Laboratory Tests Test 04/01/25 18:58 04/01/25 20:51 Lactic Acid Level 2.5 mmol/L (0.4-2.0) *H 0.8 mmol/L (0.4-2.0) White Blood Count 8.4 10^3/uL (4.4-10.8) Medications Medications Dose Ordered Sig/Gardenia Route Start Time Stop Time Status Last Admin Dose Admin Acetaminophen 1,000 mg ONCE ONCE PO 04/01/25 18:15 04/01/25 18:16 DC 04/01/25 18:35 1,000 MG Albumin Human 250 ml @ 250 mls/hr ONCE ONCE IV 04/02/25 03:00 04/02/25 03:59 DC 04/02/25 03:00 250 MLS/HR Ibuprofen 600 mg ONCE ONCE PO 04/01/25 18:30 04/01/25 18:31 DC 04/01/25 18:35 600 MG Piperacillin Sod/ Tazobactam Sod 100 ml @ 100 mls/hr ONCE ONCE IV 04/01/25 18:30 04/01/25 19:29 DC 04/01/25 19:30 100 MLS/HR Sodium Chloride 1,000 ml @ 100 mls/hr Q10H ONCE IV 04/01/25 22:45 04/02/25 08:44 04/01/25 23:24 100 MLS/HR Sodium Chloride 1,000 ml @ 1,000 mls/hr Q1H ONCE IV 04/02/25 02:30 04/02/25 03:29 DC 04/02/25 02:30 1,000 MLS/HR Sodium Chloride 1,000 ml @ 1,000 mls/hr Q1H ONCE IVB 04/01/25 18:30 04/01/25 19:29 DC 04/01/25 18:33 1,000 MLS/HR Assessment/Plan Assessment/Plan Assessment Postoperative fever Hypotension Mild anemia Transaminitis Plan Admit the patient to telemetry to the hospitalist Maintenance IV fluids Zosyn Blood cultures pending Continue treatment per orders. Plan discussed with: Patient My Orders Orders - TOVA PAEZLluvia Procedure Category Date Status Time Sodium Chloride 0.9% PHA 04/01/25 In Process 22:45 Piperacillin-Tazob PHA 04/02/25 In Process 3.375gm (Zosyn 3.375g 06:00 Regular Diet DIET 04/02/25 Transmitted Breakfast Admit ADMIT 04/01/25 Transmitted 22:36 Hydrocodone-Acet PHA 04/01/25 In Process 5/325mg Tab ([place] 22:45 Temazepam (Restoril) PHA 04/01/25 In Process 22:45 Ondansetron Hcl PHA 04/01/25 In Process (Zofran) 22:45 Complete Blood Count LAB 04/02/25 Logged 04:00 Comprehensive LAB 04/02/25 Logged Metabolic Panel 04:00 Condition: Stable [place] 04/01/25 In Process 22:36 Acetaminophen Tablet PHA 04/01/25 In Process (Tylenol Tablet) 22:45 Bedrest With Bathroom [place] 04/01/25 In Process Privileg 22:36 Nitroglycerin PHA 04/01/25 In Process Sublingual (Ntrostat 22:45 Morphine Sulfate PHA 04/01/25 In Process Injection 22:45 Stat Ekg For Chest [facility] 04/01/25 In Process Pain 22:36 Notify Of Changes [facility] 04/01/25 In Process From Base 22:36 Radio Script Writer For [facility] 04/01/25 In Process 24 Hours 22:36 Emergency Dysrhythmia [facility] 04/01/25 In Process Protocol 22:36 Rhythm Strips Once [facility] 04/01/25 In Process Every Shift 22:36 Oxygen By Nasal RT 04/01/25 Transmitted Cannula 22:36 Pelvic US 04/01/25 Resulted 22:36 PTPTT LAB 04/02/25 Logged 04:51 NS PHA 04/02/25 Verified 05:00 Date of Service: Apr 01, 2025 Billing Provider: TOVA PAEZ Common Visit Codes: [id number] INP/OBS CARE (HIGH) TOVA PAEZ Apr 02, 2025 05:01
[2025-04-02] MEDS: SODIUM CHLORIDE 0.9% 500 ML IV ONE (05:23)
[2025-04-02 05:28] LABS: Hematocrit 30.5 % (36.0-46.0); Hemoglobin 9.5 g/dL (12.2-16.2); Mean Corpuscular Hemoglobin 25.1 pg (28.0-32.0); Mean Corpuscular Volume 80.4 fL (80.0-100.0); Nucleated Red Blood Cells % 0.1 %
[2025-04-02 05:46] LABS: Albumin 3.7 g/dL (3.2-4.8); Anion Gap 8 (5-15); BUN/Creatinine Ratio 13.0 (10.0-20.0); Carbon Dioxide 25 mmol/L (20-31); Glucose 99 mg/dL (74-106); Potassium 3.6 mmol/L (3.5-5.1); Sodium 143 mmol/L (136-145); Total Protein 6.3 g/dL (5.7-8.2)
[2025-04-02 05:47] LABS: Bilirubin, Total 0.7 mg/dL (0.2-1.0)
[2025-04-02 05:48] LABS: Alanine Aminotransferase 60 U/L (7-40); Alkaline Phosphatase 235 U/L (46-116); Blood Urea Nitrogen 7 mg/dL (9-23); Calcium 8.1 mg/dL (8.7-10.4); Chloride 110 mmol/L (98-107)
[2025-04-02 06:19] LABS: INR 1.0 (0.9-1.15); Partial Thromboplastin Time 29.6 SEC (24.5-34.5); Prothrombin Time 10.6 sec (9.3-11.8)
[2025-04-02] MEDS: PIPERACILLIN-TAZOB 3.375GM 100 ML IV SCH (07:05)
[2025-04-02] MEDS: ACETAMINOPHEN 325 MG TAB PO PRN (07:16)
[2025-04-02] MEDS ORDERED: ACET-6 PO (09:40)
[2025-04-02] MEDS ORDERED: IBUP1TAB4 PO (09:40)
== END 2025-04-02 11:49 | disposition left against medical advice (07) | DRG 561 ==
LOC: ER 17:48 → OVERFLOW 22:36
PROVIDERS: ADMIT Family Medicine; ATTEND Family Medicine
DX: O90.89 Other complications of the puerperium, not elsewhere classified (principal); R50.82 Postprocedural fever; D64.9 Anemia, unspecified; I95.9 Hypotension, unspecified; R74.01 Elevation of levels of liver transaminase levels; Z53.29 Procedure and treatment not carried out because of patient's decision for other reasons; Z90.49 Acquired absence of other specified parts of digestive tract; O90.81 Anemia of the puerperium
CPT/HCPCS: 36415; 74177; 76856; 80053; 81001; 83540; 83550; 83605; 85025; 85610; 85730; 87040; 96361; 96365; 99291; G0378; J2543